=== PATIENT | female | born 1945 | race Caucasian/White ===

== ENCOUNTER 2019-08-13 11:09 | Outpatient (CLI) | payer MEDICARE, SELFPAY ==
--- NOTE | ~2019-08-13 | XR_ITS ---
EXAMINATION: XR chest 2V DATE: 08/13/2019 11:35 INDICATION: Cough and wheezing. TECHNIQUE: Frontal and lateral views of the chest were obtained. COMPARISON: None. FINDINGS: The chest demonstrates clear lungs without pneumonia, pleural effusion, or pneumothorax. Th e heart size is normal. There is a total left shoulder arthroplasty. There are surgical clips in the abdomen. IMPRESSION: 1. No acute cardiopulmonary disease. Reviewed, dictated and finalized at location A. 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
[2019-08-13 11:49] LABS: Influenza Control Valid (Valid)
== END 2019-08-13 11:10 | disposition home or self-care (01) ==
PROVIDERS: PCP Internal Medicine; Visit Provider Internal Medicine
DX: R05 Cough (principal); R06.2 Wheezing
CPT/HCPCS: 71046; 87804

== ENCOUNTER 2019-12-01 11:10 | Outpatient (CLI) | payer MEDICARE, SELFPAY ==
--- NOTE | ~2019-12-01 | XR_ITS ---
EXAMINATION: XR knee RT min 4V EXAM DATE: 12/01/2019 11:46 INDICATION: Initial encounter following injury, with pain of the right knee. Fell one week ago. TECHNIQUE: Right knee frontal, oblique, lateral and sunrise projections. There is no prior study fo r comparison. FINDINGS: There is severe right knee medial tibiofemoral compartment, moderate patellofemoral compart ment primary osteoarthritis. Extensive subchondral cyst formation at the medial tibiofemoral compart ment. No joint effusion. There are no acute fractures or dislocations identified. There is no subcut aneous gas. The soft tissue is unremarkable. There are no radiopaque foreign bodies. IMPRESSION: 1. Right knee exam without acute osseous findings. 2. Severe medial tibiofemoral, moderate patellofemoral compartment osteoarthritis. Reviewed, dictated and finalized at location A. IMPRESSION: 1. Right knee exam without acute osseous findings. 2. Severe medial tibiofemoral, moderate patellofemoral compartment osteoarthri tis.
--- NOTE | ~2019-12-01 | XR_ITS ---
EXAMINATION: XR knee LT min 4V EXAM DATE: 12/01/2019 11:46 INDICATION: Initial encounter following injury, with pain of the knees bilaterally. Injury one week ago. TECHNIQUE: Left knee lateral, frontal, oblique, sunrise projections. There is no prior study for com parison. FINDINGS: No evidence osteochondral defect or joint body in the left knee joint. There is moderate patellofemoral and medial tibiofemoral compartment primary osteoarthritis. There are no acute fractu res or dislocations identified. There is no subcutaneous gas. The soft tissue is unremarkable. Th ere are no radiopaque foreign bodies. No joint effusion. IMPRESSION: 1. Left knee exam without acute osseous findings. 2. Moderate osteoarthritis. Reviewed, dictated and finalized at location A.
== END 2019-12-01 11:11 | disposition home or self-care (01) ==
PROVIDERS: PCP Internal Medicine; Visit Provider Internal Medicine
DX: M25.562 Pain in left knee (principal); M25.561 Pain in right knee
CPT/HCPCS: 73564

== ENCOUNTER 2020-05-16 09:15 | Outpatient (CLI) | payer MEDICARE, SELFPAY ==
--- NOTE | ~2020-05-16 | XR_ITS ---
XR foot RT min 3V DATE: 05/16/2020 09:38 INDICATION: Fall one week ago. Right foot pain, especially third digit. TECHNIQUE: 3 views COMPARISON: None FINDINGS: Diffuse osteopenia. There is osteoarthritic change at the first metatarsophalangeal joint. There is plantar calcaneal enthesopathy without evidence of erosive change or periostitis. No fracture, dislocation, periosteal reaction or bone destruction is evident. IMPRESSION: Plantar calcaneal enthesopathy Osteoarthritis at first metatarsophalangeal joint Reviewed, dictated and finalized at location A. 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
== END 2020-05-16 09:16 | disposition home or self-care (01) ==
LOC: CHSIMG 09:17
PROVIDERS: PCP Internal Medicine; Visit Provider Podiatrist
DX: M79.671 Pain in right foot (principal); L97.511 Non-pressure chronic ulcer of other part of right foot limited to breakdown of skin
CPT/HCPCS: 73630

== ENCOUNTER 2020-05-30 10:56 | Outpatient (CLI) | payer MEDICARE, SELFPAY ==
[2020-05-30 12:04] LABS: SARS-CoV-2 Ag Negative (Negative)
== END 2020-05-30 10:57 | disposition home or self-care (01) ==
LOC: CHSLAB 10:58
PROVIDERS: PCP Internal Medicine; Visit Provider Internal Medicine
DX: Z20.828 Contact with and (suspected) exposure to other viral communicable diseases (principal)
CPT/HCPCS: 87426

== ENCOUNTER 2020-06-21 11:40 | Outpatient (CLI) | payer MEDICARE, SELFPAY ==
--- NOTE | ~2020-06-21 | US_ITS ---
EXAMINATION: US venous doppler LE RT EXAM DATE: 06/21/2020 13:07 INDICATION: Right calf swelling. Chiang's cyst. TECHNIQUE: Multiple grayscale, color flow and Doppler images of the right lower extremity deep venous system were obtained and reviewed. There is no prior study for comparison. FINDINGS: The right common femoral, femoral and profunda veins demonstrate normal color flow, respira tory variation, augmentation and compressibility. Compressibility, color flow confirmed within the r ight popliteal, posterior tibial, peroneal, and greater saphenous veins. There is a small Chiang's cy st measuring 1.7 x 1.0 x 2.4 cm. IMPRESSION: 1. No right lower extremity deep venous thrombosis. 2. Small Chiang's cyst. Reviewed, dictated and finalized at location B. 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
== END 2020-06-21 11:41 | disposition home or self-care (01) ==
LOC: CHSIMG 11:41
PROVIDERS: PCP Internal Medicine; Visit Provider Internal Medicine
DX: M79.89 Other specified soft tissue disorders (principal)
CPT/HCPCS: 93971

== ENCOUNTER 2020-11-20 10:18 | Outpatient (RCR) | payer MEDICARE, SELFPAY ==
--- NOTE | 2020-11-20 12:38 | PTOPEVAL ---
Thank you for referring John Kwon to [facility].? The patient is scheduled to be seen for therapy? ____x/week for ___ weeks. Please review, sign, date and return this plan of care BRIGITTE. I agree with and certify that the following plan of care is medically necessary. Referring Physician Date Admitting Provider: Attending Provider: Tianna Peres MD Referring Provider: *PT Outpatient Evaluation Start: 11/20/20 10:19 Freq: Status: Active Protocol: Document 11/20/20 10:19 ACR (Rec: 11/20/20 12:37 ACR [id number]) Therapy Assessment Status Assessment Status Assessment Status Evaluation Evaluation Information Problem Diagnosis B knee pain Onset 11/15/20 Subjective Information Patient states that her R knee Query Text:As Reported By Patient/ is worse than the L. The Family patient states that she went and had a surgical consult and stated she is approved, but she has other concerns that she is does not want to get surgery. She states that she cannot bend her knee much. Patient states that she has difficulty getting in and out of the car, walking, standing, stairs. Patient states that her goal for therapy is to gain strength and put off surgery. Prior Level of Function Activity Level (Last 3 Months) Occupation retired Hand Dominance Right Activity of Daily Living Ability Independent Indoor/Home Mobility Independent Community Mobility Independent Stairs Ability Independent Functional Cognition (Planning, Shopping Independent , Taking Medications) Cooking Yes Cleaning Yes Laundry Yes Shopping Yes Driving Yes Pain Assessment Timing of Pain Assessment Timing of Pain Assessment Assessment Pain Scale Pain Scale Used Numeric (1 - 10) Self Report Pain Assessment Left Knee(s) Reported Pain Level 0 Greatest Pain Intensity 3 Right Knee(s) Reported Pain Level 2 Greatest Pain Intensity 6 Pain Score Pain Score 2,0: Self Report Interventions Used Interventions Used By Clinicians Activity or ADL's,Exercise Lower Extremity Range of Motion Knee Range of Motion Right Knee Flexion Range of Motion - Active 55
--- NOTE | 2021-04-11 07:24 | PCPTNOTE ---
04/11/21 - patient has not been back to therapy in several months. she is working on getting setup for a R knee replacement. patient chart is DC'd. all progress towards goals will be taken from her most recent evaluation/note. MONICA
== END 2020-12-21 23:59 | disposition home or self-care (01) ==
LOC: CHSPT 10:18
PROVIDERS: PCP Internal Medicine; Visit Provider Internal Medicine
DX: M25.562 Pain in left knee (principal); M25.561 Pain in right knee
CPT/HCPCS: 97110; 97161; 97530

== ENCOUNTER 2020-11-28 11:12 | Outpatient (CLI) | payer MEDICARE, SELFPAY ==
--- NOTE | ~2020-11-28 | XR_ITS ---
EXAMINATION: XR foot LT min 3V DATE: 11/28/2020 11:51 INDICATION: Left foot diabetic ulcer. TECHNIQUE: 3 views of left foot were obtained. COMPARISON: None. FINDINGS: Bone alignment is normal. No fracture. There is an erosion of tuft of third distal phalanx. There is mild osteoarthritis of some of the interphalangeal joints and midfoot joints. There are ent hesophytes at the posterior and plantar aspect of calcaneal tuberosities. There is lateral foot soft tissue swelling. IMPRESSION: 1. Erosion of tuft of third distal phalanx, consistent with osteomyelitis. 2. Mild polyarticular osteoarthritis. Reviewed, dictated and finalized at location A.
== END 2020-11-28 11:13 | disposition home or self-care (01) ==
LOC: CHSIMG 11:14
PROVIDERS: PCP Internal Medicine; Visit Provider Podiatrist
DX: E11.621 Type 2 diabetes mellitus with foot ulcer (principal)
CPT/HCPCS: 73630

== ENCOUNTER 2020-12-22 16:51 | Outpatient (CLI) | payer MEDICARE, SELFPAY ==
[2020-12-22 17:25] LABS: Anion Gap 13 mmol/L (8-16); Blood Urea Nitrogen 31 mg/dL (7-18); Carbon Dioxide 25 mmol/L (21-32); Chloride 108 mmol/L (98-108); Estimated Glomerular Filt Rate 48; Glucose 87 mg/dL (70-99); Osmolality Calculated 307 mOsm/kg (285-295); Potassium 5.1 mmol/L (3.5-5.1); Sodium 146 mmol/L (136-145)
== END 2020-12-22 16:52 | disposition home or self-care (01) ==
LOC: CHSLAB 16:53
PROVIDERS: PCP Internal Medicine; Visit Provider Anesthesiology
DX: E11.9 Type 2 diabetes mellitus without complications (principal)
CPT/HCPCS: 36415; 80048

== ENCOUNTER 2020-12-26 01:30 | Day surgery (SDC) | payer MEDICARE, SELFPAY ==
[2020-12-22 08:52] VITALS: BMI 33.3
[2020-12-26 08:03] VITALS: BP 173/75; PULSE 66; RESP 20; TEMP 36.3; O2SAT 99
[2020-12-26] MEDS: LACTATED RINGERS 1,000 ML 30 ML IV CONT (08:40)
[2020-12-26 08:44] LABS: Glucose Point of Care 94 mg/dl (65-105)
--- NOTE | 2020-12-26 09:29 | WPDHPUPDATE1 ---
History and Physical Update Update Date/Time: 12/26/20 09:29 History and Physical has been reviewed, including an updated exam of the patient. There are NO changes in the patient's condition. Risks, benefits, and alternatives have been discussed and questions answered. Patient agrees to proceed with procedure.
--- NOTE | 2020-12-26 09:37 | WPDANESEPPF ---
Anes - Initial Pre Proc Eval Procedure: Operation Date: 12/26/20 10:00 Proposed Procedures p Partial Amputation Third Digit Left Foot - Manuel Corona DPM Date/Time: 12/26/20 09:37 Surgeon: Manuel Corona DPM Pre Op Diagnosis: Osteomyelitis third digit left foot Patient Data Age: 75 Gender: F Height: 1.68 m Weight: 96.6 kg Last Vital Signs Temp 36.3 C L 12/26/20 08:03 Pulse 66 12/26/20 08:03 Resp 20 12/26/20 08:03 BP 173/75 H 12/26/20 08:03 Pulse Ox 99 12/26/20 08:03 Allergies Allergy/AdvReac Type Severity Reaction Status Date / Time Sulfa (Sulfonamide AdvReac Rash Verified 12/26/20 08:21 Antibiotics) Tetracyclines AdvReac Hives Verified 12/26/20 08:21 Home Medications Medication Instructions Recorded Confirmed Type Lacto.acidophilus-Bif.animalis 1 cap PO DAILY 12/22/20 12/26/20 History [Probiotic] acetaminophen [Tylenol] 650 mg PO Q6H PRN 12/22/20 12/26/20 History allopurinol 100 mg PO BID 12/22/20 12/26/20 History aspirin [Aspir-81] 81 mg PO DAILY 12/22/20 12/26/20 History cetirizine [Zyrtec] 5 mg PO BID 12/22/20 12/26/20 History cholecalciferol (vitamin D3) 50 mcg PO QAM 12/22/20 12/26/20 History [Vitamin D3] colchicine 0.6 mg BID 12/22/20 12/26/20 History epinephrine 0.3 mg PRN PRN 12/22/20 12/26/20 History hydroxychloroquine 200 mg BID 12/22/20 12/26/20 History levothyroxine 50 mcg QAM 12/22/20 12/26/20 History metformin 500 mg QAM 12/22/20 12/26/20 History multivitamin [Multi-Vitamin] 1 tablet PO DAILY 12/22/20 12/26/20 History nebivolol [Bystolic] 20 mg QAM 12/22/20 12/26/20 History olmesartan 40 mg QAM 12/22/20 12/26/20 History pravastatin 10 mg EVERY OTHER DAY 12/22/20 12/26/20 History tramadol 25 mg Q6H PRN 12/22/20 12/26/20 History venlafaxine 75 mg PO HS 12/22/20 12/26/20 History Laboratory Tests 12/26/20 08:39 POC Capillary Glucose 94 mg/dl mg/dl (65-105) Patient hx anesthesia problems: none Family hx anesthesia problems: none PMFSH Past Medical History Medical History (Updated 12/26/20 @ 09:38 by Ky Mejia DO) Bronchitis frequent Diabetes type 2, controlled GERD (gastroesophageal reflux disease) History of subdural hematoma Angelito hole in , no residual Hyperlipidemia Hypertension Hypothyroidism BRIJESH (obstructive sleep apnea) CPAP Surgical History Surgical History (Updated 12/26/20 @ 09:38 by Ky Mejia DO) History of appendectomy History of cholecystectomy Social History Social History (System 12/20/20 @ 13:20 by Alea Jones) Smoking status: Former smoker Second hand tobacco smoke exposure: No Additional smoking assessment comments: STATES SMOKED SOCIALLY IN COLLEGE <1Y Alcohol intake: current Alcohol use details: STATES MAYBE 3-4 DRINKS A YEAR Substance use: never Substance use type: does not use Living arrangements: with family Spiritual care concerns: No Anes - Eval Final PreProcedure Day of Procedure 12/26/20 09:37 Patient weight: obese Heart: regular rate and rhythm Lungs: clear to auscultation and normal air movement Airway: Mallampati scale class II Neurological: alert and oriented Last oral intake: >/= 8 hours ASA classification: III Emergent: no Anesthetic plan: proceed Anesthesia type and monitoring: general GIVS and standard monitoring Informed Consent: The patient's anesthetic plan and its attendant risks and benefits were discussed with the patient/family/POA. Questions were solicited and answers provided to the satisfaction of the patient/family/POA.
[2020-12-26] MEDS: ceFAZolin 2 GM/D5W 50 ML 2 GM/50 ML BAG IVPB (09:55)
[2020-12-26] MEDS: VANCOMYCIN HCL 1,000 MG VIAL 1000 MG TOPICAL (10:29)
[2020-12-26 10:40] VITALS: BP 102/44; PULSE 67; RESP 15; O2SAT 100
--- NOTE | 2020-12-26 10:40 | W.PM.PROC2 ---
Procedure Note - Detailed Date of Procedure 12/26/20 Pre-op Diagnosis Osteomyelitis third digit left foot Post-op Diagnosis same Procedure Performed Pre-op Diagnosis: Osteomyelitis third digit, left foot Post-op Diagnosis: same Procedure: Partial amputation third digit, left foot Anesthesia: MAC with local Hemostasis: Ankle TQ 250mmhg EBL: 2cc Materials: 4-0 prolene Injectables: 10cc of 1:1 mixture of 1% lidocaine plain and 0.5% marcaine plain Specimen: Bone cultures distal phalanx third digit, left foot. Pathology distal phalanx third digit, left foot. Procedure in detail: Under mild sedation the patient was brought in the operating room placed on the operating table in a supine position. a well-padded pneumatic ankle tourniquet was then placed on patient's left ankle. local anesthesia was injected about the patient's 3rd digit, a total of 10 cc of a 1:1 mixture of 1% lidocaine plain and 0.5% Marcaine plain were then injected injected about the operative site. foot was then scrubbed prepped and draped in the usual aseptic manner. and Esmarch bandage was utilized to exsanguinate patient's left foot and the pneumatic ankle tourniquet was inflated to 250 mmHg. attention was directed to the distal aspect of the patient's 3rd digit where an open wound was noted to the plantar aspect of the distal tuft. utilizing a sharp sterile 15 blade an incision was made down to bone and Compazine the middle phalanx and distal phalanx of the 3rd digit. the soft tissue was then carefully disarticulated from the bony attachments. please note that the wound to the plantar tuft of the 3rd digit was also encompassed within this incision. the dorsal skin and the distal aspect of the digit including the distal phalanx was carefully disarticulated at the DIPJ and passed from the field. specimens were then taken from the distal phalanx, a portion was sent for bone cultures for aerobic and anaerobic cultures and the remaining portion of the distal phalanx was then sent as a specimen for pathology. the middle phalanx was then carefully inspected about the operative site and the distal portion of the middle phalanx was then resected with bone-cutting forceps and noted to be hard and viable. all nonviable soft tissue to the soft tissue flap was then carefully removed and passed from field. the remaining soft tissue and bone were all noted to be viable. the resected portion of the middle phalanx was then carefully burred down with a bone rasp and noted to be free of any sharp cortical edges. the wound was carefully irrigated with 200 cc of normal sterile saline mixed with 1 g of vancomycin powder. the surgical site was then carefully inspected 1 last time and noted to be free of all nonviable bone and soft tissue. a good viable skin flap was noted and the wound was closed with 4 0 Prolene. the incision was then dressed with Xeroform 4x4s Kerlix and Coban. the pneumatic ankle tourniquet was deflated and a prompt hyperemic response noted to all toes of the left foot. the patient tolerated the procedure and anesthesia well was transferred to the recovery room with vital signs stable and vascular status intact to the toes of the left foot. following a period of postoperative monitoring the patient will be discharged home. Surgeon Surgeon: Manuel Corona DPM Pre-op Diagnosis: Osteomyelitis third digit, left foot Post-op Diagnosis: same Procedure: Partial amputation third digit, left foot Anesthesia: MAC with local Hemostasis: Ankle TQ 250mmhg EBL: 2cc Materials: 4-0 prolene Injectables: 10cc of 1:1 mixture of 1% lidocaine plain and 0.5% marcaine plain Specimen: Bone cultures distal phalanx third digit, left foot. Pathology distal phalanx third digit, left foot. Procedure in detail: Under mild sedation the patient was brought in the operating room placed on the operating table in a supine position. a well-padded pneumatic ankle tourniquet was then placed on pat
[2020-12-26 10:47] LABS: Glucose Point of Care 110 mg/dl (65-105)
[2020-12-26 11:10] VITALS: BP 136/53; PULSE 58; RESP 16
[2020-12-26 11:38] VITALS: BP 142/69; PULSE 59; RESP 16
== END 2020-12-26 11:50 | disposition home or self-care (01) ==
PROVIDERS: PCP Internal Medicine; Visit Provider Podiatrist
PROC: (CPT 28825; principal; 2020-12-26 10:00)
DX: E11.69 Type 2 diabetes mellitus with other specified complication (principal); M86.672 Other chronic osteomyelitis, left ankle and foot; I10 Essential (primary) hypertension; E78.5 Hyperlipidemia, unspecified; E03.9 Hypothyroidism, unspecified; G47.33 Obstructive sleep apnea (adult) (pediatric); K21.9 Gastro-esophageal reflux disease without esophagitis; Z79.84 Long term (current) use of oral hypoglycemic drugs; Z79.82 Long term (current) use of aspirin; Z87.891 Personal history of nicotine dependence; E66.9 Obesity, unspecified; Z68.34 Body mass index [BMI] 34.0-34.9, adult
CPT/HCPCS: 28825; 82948; 87070; 87075; 87077; 87186; 87205; 88307; 88311; A9270; J0690; J2704; J3010; J3370; J7120

== ENCOUNTER 2021-01-03 10:26 | Outpatient (CLI) | payer MEDICARE, SELFPAY ==
--- NOTE | ~2021-01-03 | XR_ITS ---
XR foot LT min 3V 01/03/2021 10:54 Indication: Osteomyelitis of the left third toe. Post amputation. Procedure: 3 views left foot Comparison: 11/28/2020 Findings: Status post amputation of the third toe at the middle phalanx. Mild soft tissue swelling. N o fracture or traumatic malalignment. Osteopenia. Lisfranc joint intact. There are degenerative calca ricarda spurs. No foreign bodies. Impression: 1: Status post amputation of the left third toe at the middle phalanx. Reviewed, dictated and finalized at location A. Impression: 1: Status post amputation of the left third toe at the middle phalanx.
== END 2021-01-03 10:27 | disposition home or self-care (01) ==
LOC: CHSIMG 10:28
PROVIDERS: PCP Internal Medicine; Visit Provider Podiatrist
DX: Z98.890 Other specified postprocedural states (principal); M86.9 Osteomyelitis, unspecified
CPT/HCPCS: 73630

== ENCOUNTER 2021-01-31 11:33 | Outpatient (CLI) | payer MEDICARE, SELFPAY ==
--- NOTE | ~2021-01-31 | XR_ITS ---
EXAMINATION: XR foot LT min 3V DATE: 01/31/2021 11:55 INDICATION: Follow-up osteomyelitis of the left third toe TECHNIQUE: Dorsoplantar, oblique and lateral views of the left foot were obtained. COMPARISON: None. FINDINGS: Again seen a left third toe amputation across the proximal metaphyseal region of the middle phalanx. Unchanged smooth osteotomy margin with no evident osteolysis to suggest residual/recurrent osteomyeli tis. No fracture. Mild osteoarthritis at the first metatarsophalangeal and several tarsal metatarsal and interphalangeal joints. Achilles and plantar calcaneal spurs, moderate and small sized respective ly. IMPRESSION: 1. Status post partial left third toe amputation with no evident residual/recurrent osteomyelitis. Reviewed, dictated and finalized at location B. IMPRESSION: 1. Status post partial left third toe amputation with no evident residual/recur rent osteomyelitis.
== END 2021-01-31 11:34 | disposition home or self-care (01) ==
LOC: CHSLAB 11:35
PROVIDERS: PCP Internal Medicine; Visit Provider Podiatrist
DX: M86.9 Osteomyelitis, unspecified (principal)
CPT/HCPCS: 73630

== ENCOUNTER 2021-05-10 09:57 | Outpatient (CLI) | payer MEDICARE, SELFPAY ==
[2021-05-10 11:54] LABS: Basophils Percent Auto 0.4 % (0.2-1.2); Eosinophils Absolute Auto 0.4 K/mm3 (0-0.3); Eosinophils Percent Auto 5.1 % (0-4.4); Hematocrit 35.9 % (37.0-47.0); Hemoglobin 11.6 g/dL (12.0-15.0); Immature Granulocyte Absolute 0.03 K/mm3 (0.00-0.031); Immature Granulocyte Percent A 0.4 % (0-0.5); Lymphocytes Absolute Auto 2.06 K/mm3 (0.9-3.2); Lymphocytes Percent Auto 29.9 % (18.3-44.2); Mean Corpuscular HGB Conc 32.3 g/dl (32-36); Mean Corpuscular Hemoglobin 30.9 pg (26-34); Mean Corpuscular Volume 95.5 fl (80-100); Mean Platelet Volume 10.6 fl (7.4-10.4); Monocytes Absolute Auto 0.5 K/mm3 (0.1-0.6); Monocytes Percent Auto 7.7 % (2.6-8.5); Neutrophils Absolute Auto 3.9 K/mm3 (1.3-6.7); Neutrophils Percent Auto 56.5 % (45.5-73.1); Platelet Count Result 210 k/mm3 (150-375); Red Blood Count 3.76 M/mm3 (4.2-5.4); Red Cell Distribution Width 15.2 % (11.5-14.5); White Blood Count 6.9 K/mm3 (4.5-10.0)
[2021-05-10 12:04] LABS: Albumin Level 4.2 g/dL (3.5-5.1); Anion Gap 9 mmol/L (8-16); Blood Urea Nitrogen 28 mg/dL (7-17); Calcium 9.5 mg/dL (8.4-10.2); Carbon Dioxide 25 mmol/L (22-30); Chloride 106 mmol/L (98-107); Estimated Glomerular Filt Rate 54; Glucose 92 mg/dL (65-110); Potassium 4.7 mmol/L (3.4-5.0); Sodium 140 mmol/L (137-145); Urine Cotinine NEGATIVE
[2021-05-10 12:38] LABS: Hemoglobin A1C 5.6 % (<5.7)
== END 2021-05-10 09:58 | disposition home or self-care (01) ==
LOC: ANHSURGERY 10:01
PROVIDERS: PCP Internal Medicine; Visit Provider Orthopaedic Surgery
DX: M17.11 Unilateral primary osteoarthritis, right knee (principal); Z01.818 Encounter for other preprocedural examination
CPT/HCPCS: 80048; 80307; 82040; 83036; 85025; 87070

== ENCOUNTER 2021-08-09 13:52 | Outpatient (CLI) | payer MEDICARE, SELFPAY ==
[2021-08-09 14:43] LABS: Basophils Percent Auto 0.4 % (0.2-1.2); Eosinophils Absolute Auto 0.4 K/mm3 (0-0.3); Eosinophils Percent Auto 5.6 % (0-4.4); Hematocrit 37.3 % (37.0-47.0); Hemoglobin 11.9 g/dL (12.0-15.0); Immature Granulocyte Absolute 0.03 K/mm3 (0.00-0.031); Immature Granulocyte Percent A 0.4 % (0-0.5); Lymphocytes Absolute Auto 2.55 K/mm3 (0.9-3.2); Lymphocytes Percent Auto 36.3 % (18.3-44.2); Mean Corpuscular HGB Conc 31.9 g/dl (32-36); Mean Corpuscular Hemoglobin 31.2 pg (26-34); Mean Corpuscular Volume 97.9 fl (80-100); Mean Platelet Volume 10.7 fl (7.4-10.4); Monocytes Absolute Auto 0.6 K/mm3 (0.1-0.6); Monocytes Percent Auto 8.5 % (2.6-8.5); Neutrophils Absolute Auto 3.4 K/mm3 (1.3-6.7); Neutrophils Percent Auto 48.8 % (45.5-73.1); Platelet Count Result 209 k/mm3 (150-375); Red Blood Count 3.81 M/mm3 (4.2-5.4); Red Cell Distribution Width 14.6 % (11.5-14.5)
[2021-08-09 14:59] LABS: Albumin Level 4.5 g/dL (3.5-5.1); Anion Gap 6 mmol/L (8-16); Blood Urea Nitrogen 25 mg/dL (7-17); Calcium 8.9 mg/dL (8.4-10.2); Carbon Dioxide 26 mmol/L (22-30); Chloride 106 mmol/L (98-107); Estimated Glomerular Filt Rate > 60; Glucose 97 mg/dL (65-110); Potassium 4.6 mmol/L (3.4-5.0); Sodium 138 mmol/L (137-145)
[2021-08-09 15:24] LABS: Urine Cotinine NEGATIVE
[2021-08-09 15:59] LABS: Hemoglobin A1C 5.3 % (<5.7)
== END 2021-08-09 13:53 | disposition home or self-care (01) ==
PROVIDERS: PCP Internal Medicine; Visit Provider Orthopaedic Surgery
DX: Z01.818 Encounter for other preprocedural examination (principal); M17.11 Unilateral primary osteoarthritis, right knee
CPT/HCPCS: 80048; 80307; 82040; 83036; 85025; 86850; 86900; 86901; 87070

== ENCOUNTER 2021-08-15 | Day surgery (SDC) | payer MEDICARE, SELFPAY ==
[2021-05-10 10:33] VITALS: BP 143/65; PULSE 61; RESP 18; TEMP 37.3; O2SAT 99; BMI 37.3
--- NOTE | 2021-05-10 10:59 | PC.NURSE ---
Addendum entered by Olga Hinojosa RN 05/10/21 11:24: CLARIFICATION-HOLD ASPIRIN 7 DAYS PRE-OP, LD 05/21/21. VIT/SUPPLEMENTS -LD 05/24/21. Original Note: Report to the Outpatient Waiting Room, entrance under the green pavilion located off [facility], at time __6:00AM on date __05/28/21 . OR Time: ___7:30AM . - You and your visitor will be asked a series of questions to screen for COVID 19 for your protection. - A mask is required within the hospital. - Only one visitor is allowed at this time. Patient visitors will be guided where to wait when not with patient. Preoperative COVID Testing Requirements: No COVID Test needed if: (proof is required; if not received patient will have Rapid Test prior to entry) - Patient has received COVID Vaccine at least 14 days prior to procedure date or - Patient has positive COVID test result within last 90 days of surgery date. COVID Test needed if above criteria is not met If not COVID vaccinated a COVID test must be conducted within 72 hours of surgery and patient is asked to isolate self from time of testing until procedure. You will go to the [facility] for your COVID testing. The [facility] Testing site is located at the corner of [address] [facility]. You will only be called if COVID results are positive and your surgeon may reschedule your elective surgery date. Patients may have clear liquids (water, carbonated beverages, clear teas, apple juice) until 3 hours prior to surgery with a maximum of 20 ounces. - No food from midnight until time of surgery - Infants may have breast milk until 4 hours before surgery, infant formula 6 hours prior to surgery. - Children will be allowed to drink immediately following surgery. If applicable, please bring a bottle or sippy cup to assist with drinking. Juice, water, soda, and popsicles are readily available. For infants on formula, please bring formula the day of surgery. Pacifiers are allowed. Take the following medications with a SIP of water the morning of surgery: LEVOTHYROXINE, NEBIVOLOL, TRAMADOL NEEDED Medications to discontinue per physician VITAMINS/SUPPLEMENTS 3 DAYS PRE-OP Date to take last dose 05/21/21 Please no make-up, nail lao, hairspray, perfume, deodorant, or body powder the day of surgery. No jewelry (including any body piercings) or valuables the day of surgery, leave them at home. Please take a shower or bath the night before, or the morning of, surgery with an antibacterial soap. Wear comfortable, loose fitting clothing. Children are encouraged to wear pajamas. - Jewelry must be removed prior to entering the operating room. Rings and piercings that are not removed may be cut off. - The hospital will not accept responsibility for valuables. - Please leave all valuables, including medications, at home the day of surgery. If you are going home after surgery, a licensed tow motor driver must drive you home. - NO public transportation without another adult. - We recommend that an adult stay with you for 24 hours following discharge. - We also recommend that you do not drive, make important decision, drink alcoholic beverages, or take any drugs that were not prescribed by your health care provider for at least 24 hours after your discharge time. For Pediatric surgeries, we recommend two adults accompany the child home (only one inside the building at this time). Follow any additional instructions given to you from your surgeon. Telephone instructions given to ___PATIENT and asked if any additional questions and then verbalized understanding. Patient advised to call surgeon office or pre surgery nurse liaison [phone] if any additional questions.
[2021-08-08 10:02] VITALS: BMI 39.1
--- NOTE | 2021-08-08 10:30 | PC.NURSE ---
Report to the Outpatient Waiting Room, entrance under the green pavilion located off [facility], at time __10:00AM on date _08/15/21__. OR Time: __12:00PM . - You and your visitor will be asked a series of questions to screen for COVID 19 for your protection. - A mask is required within the hospital. Preoperative COVID Testing Requirements: No COVID Test needed if: (proof is required; if not received patient will have Rapid Test prior to entry) - Patient has received COVID Vaccine at least 14 days prior to procedure date or - Patient has positive COVID test result within last 90 days of surgery date. COVID Test needed if above criteria is not met If not COVID vaccinated a COVID test must be conducted within 72 hours of surgery and patient is asked to isolate self from time of testing until procedure. You will go to the [facility] for your COVID testing. The [facility] is located at the corner of [address] [facility]. You will only be called if COVID results are positive and your surgeon may reschedule your elective surgery date. Patients may have clear liquids (water, carbonated beverages, clear teas, apple juice) until 3 hours prior to surgery with a maximum of 20 ounces. - No food from midnight until time of surgery - Infants may have breast milk until 4 hours before surgery, formula 6 hours prior to surgery. - Children will be allowed to drink immediately following surgery. If applicable, please bring a bottle or sippy cup to assist with drinking. Juice, water, soda, and popsicles are readily available. For infants on formula, please bring formula the day of surgery. Pacifiers are allowed. Take the following medications with a SIP of water the morning of surgery: __LEVOTHYROXINE, NEBIVOLOL, TRAMADOL NEEDED Medications to discontinue per physician ALL VITAMINS/SUPPLEMENTS 3 DAYS PRE-OP, ASPIRIN & DICLOFENAC 7 DAYS PRE-OP PER DR LEAL Date to take last dose___08/08/21 Please no make-up, nail armenian, hairspray, perfume, deodorant, or body powder the day of surgery. No jewelry (including any body piercings) or valuables the day of surgery, leave them at home. Please take a shower or bath the night before, or the morning of, surgery with an antibacterial soap. Wear comfortable, loose fitting clothing. Children are encouraged to wear pajamas. - Jewelry must be removed prior to entering the operating room. Rings and piercings that are not removed may be cut off. - The hospital will not accept responsibility for valuables. - Please leave all valuables, including medications, at home the day of surgery. If you are going home after surgery, a licensed local company refrigerated truck driver must drive you home. - NO public transportation without another adult. - We recommend that an adult stay with you for 24 hours following discharge. - We also recommend that you do not drive, make important decision, drink alcoholic beverages, or take any drugs that were not prescribed by your health care provider for at least 24 hours after your discharge time. For Pediatric surgeries, we recommend two adults accompany the child home (only one inside the building at this time). One visitor will be allowed to accompany the patient into the hospital. Patients visitor will be instructed to remain with patient at all times or leave the building. We will allow the visitor to come back to the postoperative area when patient is ready. Follow any additional instructions given to you from your surgeon. Telephone instructions given to ___PATIENT and asked if any additional questions and then verbalized understanding. Patient advised to call surgeon office or pre surgery nurse liaison [phone] if any additional questions.
--- NOTE | 2021-08-13 13:55 | PM.IMHP ---
H&P: HPI History of Present Illness Date/Time: 08/13/21 13:55 75-year-old female patient of Dr. Peres who presents today for right total knee arthroplasty. She has been having pain symptoms in this knee for approximately 2 years. She has advanced medial compartment arthritis in the right knee with significant bone loss in the medial tibial plateau. She also has significant loss of motion as well. She is miserable with symptoms on a daily basis. She would like to proceed with total knee arthroplasty at this point rather continue nonsurgical treatment. <SIMÓN Banda - Last Filed: 08/13/21 14:13> Chief Complaint: Right knee DJD <SIMÓN Banda - Last Filed: 08/13/21 14:13> Review of Systems Review of Systems: All systems reviewed & are unremarkable except as noted in HPI and below <SIMÓN Banda - Last Filed: 08/13/21 14:13> PMFSH Past Medical History Medical History: Medical History (Updated 08/14/21 @ 10:29 by Faustino Irizarry MD) Anxiety Arthritis Bronchitis frequent Depression Diabetes type 2, controlled GERD (gastroesophageal reflux disease) History of subdural hematoma [place] hole in , no residual Hyperlipidemia Hypertension Hypothyroidism Obesity BRIJESH (obstructive sleep apnea) CPAP <SIMÓN Banda - Last Filed: 08/13/21 14:13> Surgical History Surgical History: Surgical History History of appendectomy History of cholecystectomy <SIMÓN Banda - Last Filed: 08/13/21 14:13> Social History Social History: Social History Smoking status: Never smoker Second hand tobacco smoke exposure: No Additional smoking assessment comments: STATES SMOKED SOCIALLY IN COLLEGE <1Y Alcohol intake: current Alcohol use details: . Substance use: never Substance use type: does not use Living arrangements: with family Additional living arrangements comments: -GAUTAM Spiritual care concerns: No <SIMÓN Banda - Last Filed: 08/13/21 14:13> Meds Home Medications and Allergies Home medications: Home Medications Medication Instructions Recorded Confirmed Type Lacto.acidophilus-Bif.animalis 2 cap PO DAILY 12/22/20 08/15/21 History [Probiotic] acetaminophen [Tylenol] 650 mg PO Q6H PRN 12/22/20 08/08/21 History allopurinol 100 mg PO BID 12/22/20 08/08/21 History aspirin [Aspir-81] 81 mg PO DAILY 12/22/20 08/15/21 History cetirizine [Zyrtec] 10 mg PO BID 12/22/20 08/08/21 History cholecalciferol (vitamin D3) 50 mcg PO QAM 12/22/20 08/15/21 History [Vitamin D3] colchicine 0.6 mg PO BID 12/22/20 08/08/21 History epinephrine 0.3 mg SUBCUT PRN PRN 12/22/20 08/08/21 History hydroxychloroquine 200 mg PO BID 12/22/20 08/08/21 History levothyroxine 50 mcg PO QAM 12/22/20 08/15/21 History metformin 500 mg PO QAM 12/22/20 08/08/21 History multivitamin [Multi-Vitamin] 2 tablet PO DAILY 12/22/20 08/15/21 History nebivolol [Bystolic] 20 mg PO QAM 12/22/20 08/15/21 History olmesartan 40 mg PO QAM 12/22/20 08/08/21 History pravastatin 10 mg PO EVERY OTHER DAY 12/22/20 08/08/21 History tramadol 25 mg PO BID PRN 12/22/20 08/15/21 History venlafaxine 75 mg PO HS 12/22/20 08/08/21 History diclofenac sodium [Voltaren 2 g TOPICAL QID PRN 05/10/21 08/08/21 History Arthritis Pain] glucosamine-chondroitin [Osteo 2 tablet PO DAILY 05/10/21 08/15/21 History Bi-Flex] <SIMÓN Banda - Last Filed: 08/13/21 14:13> Allergies/Adverse reactions: Allergies Allergy/AdvReac Type Severity Reaction Status Date / Time Sulfa (Sulfonamide Allergy Rash Verified 08/15/21 10:03 Antibiotics) Tetracyclines Allergy Hives Verified 08/15/21 10:03 <SIMÓN Banda - Last Filed: 08/13/21 14:13> Exam Narrative: A 75-year-old female alert pleasant. She is 5 ft 3 and 203 lb. Her right knee range of motion is from 25-75 degr
--- NOTE | 2021-08-14 10:27 | WPDANESEPPF ---
Anes - Initial Pre Proc Eval Procedure: Operation Date: 08/15/21 12:00 Proposed Procedures p Right Total Knee Arthroplasty - Young Simmons MD Date/Time: 08/14/21 10:27 Surgeon: Young Simmons MD Pre Op Diagnosis: severe OA right knee Patient Data Age: 75 Gender: F Height: 1.55 m Weight: 94 kg Last Vital Signs Temp 37.3 C 05/10/21 10:33 Pulse 61 05/10/21 10:33 Resp 18 05/10/21 10:33 BP 143/65 H 05/10/21 10:33 Pulse Ox 99 05/10/21 10:33 Allergies Allergy/AdvReac Type Severity Reaction Status Date / Time Sulfa (Sulfonamide Allergy Rash Verified 08/08/21 10:01 Antibiotics) Tetracyclines Allergy Hives Verified 08/08/21 10:01 Home Medications Medication Instructions Recorded Confirmed Type Lacto.acidophilus-Bif.animalis 2 cap PO DAILY 12/22/20 08/08/21 History [Probiotic] acetaminophen [Tylenol] 650 mg PO Q6H PRN 12/22/20 08/08/21 History allopurinol 100 mg PO BID 12/22/20 08/08/21 History aspirin [Aspir-81] 81 mg PO DAILY 12/22/20 08/08/21 History cetirizine [Zyrtec] 10 mg PO BID 12/22/20 08/08/21 History cholecalciferol (vitamin D3) 50 mcg PO QAM 12/22/20 08/08/21 History [Vitamin D3] colchicine 0.6 mg PO BID 12/22/20 08/08/21 History epinephrine 0.3 mg SUBCUT PRN PRN 12/22/20 08/08/21 History hydroxychloroquine 200 mg PO BID 12/22/20 08/08/21 History levothyroxine 50 mcg PO QAM 12/22/20 08/08/21 History metformin 500 mg PO QAM 12/22/20 08/08/21 History multivitamin [Multi-Vitamin] 2 tablet PO DAILY 12/22/20 08/08/21 History nebivolol [Bystolic] 20 mg PO QAM 12/22/20 08/08/21 History olmesartan 40 mg PO QAM 07/16/21 03/02/22 History pravastatin 10 mg PO EVERY OTHER DAY 12/22/20 08/08/21 History tramadol 25 mg PO BID PRN 12/22/20 08/08/21 History venlafaxine 75 mg PO HS 12/22/20 08/08/21 History diclofenac sodium [Voltaren 2 g TOPICAL QID PRN 05/10/21 08/08/21 History Arthritis Pain] glucosamine-chondroitin [Osteo 2 tablet PO DAILY 05/10/21 08/08/21 History Bi-Flex] Results Review: All pre-operative results and documents have been reviewed as part of the pre-operative evaluation. [facility] Past Medical History Medical History (Updated 08/14/21 @ 10:29 by Faustino Irizarry MD) Anxiety Arthritis Bronchitis frequent Depression Diabetes type 2, controlled GERD (gastroesophageal reflux disease) History of subdural hematoma [place] hole in , no residual Hyperlipidemia Hypertension Hypothyroidism Obesity BRIJESH (obstructive sleep apnea) CPAP Surgical History Surgical History History of appendectomy History of cholecystectomy Social History Social History Smoking status: Never smoker Second hand tobacco smoke exposure: No Additional smoking assessment comments: STATES SMOKED SOCIALLY IN COLLEGE <1Y Alcohol intake: current Alcohol use details: . Substance use: never Substance use type: does not use Additional living arrangements comments: -GAUTAM Spiritual care concerns: No Anes - Eval Final PreProcedure Day of Procedure 08/14/21 10:27 Patient weight: obese Heart: regular rate and rhythm Lungs: clear to auscultation and normal air movement Airway: Mallampati scale class II Neurological: alert and oriented Last oral intake: >/= 8 hours ASA classification: III Emergent: no Anesthetic plan: proceed Anesthesia type and monitoring: general LMA and ETT Results Review: All pre-operative results and documents have been reviewed as part of the pre-operative evaluation. Informed Consent: The patient's anesthetic plan and its attendant risks and benefits were discussed with the patient/family/POA. Questions were solicited and answers provided to the satisfaction of the patient/family/POA.
[2021-08-15] VITALS (10 sets, daily range): BP systolic 100–151; BP diastolic 45–69; PULSE 59–69; RESP 14–20; TEMP 36.6–36.9; O2SAT 94–100; BMI 38.9
--- NOTE | ~2021-08-15 | XR_ITS ---
EXAMINATION: XR knee RT 2V DATE: 08/15/2021 19:11 INDICATION: Postoperative evaluation following right total knee arthroplasty. TECHNIQUE: Anteroposterior and lateral views of the right knee were obtained. COMPARISON: 12/01/2019 FINDINGS: Right total knee arthroplasty with patellar resurfacing and longstem femoral and tibial components ap pears well seated and in near anatomic alignment. Diffuse osteopenia. No fractures identified. Expect ed postoperative subcutaneous and intra-articular gas. IMPRESSION: 1. Right total knee arthroplasty, negative for postoperative purposes. Reviewed, dictated and finalized at location A. [employer]CH[employer]ICIAN
--- NOTE | 2021-08-15 08:33 | WPDANESEPPF ---
Anes - Initial Pre Proc Eval Procedure: Operation Date: 08/15/21 12:00 Proposed Procedures p Right Total Knee Arthroplasty - Young Simmons MD <Wojciech Albarran MD - Last Filed: 08/30/21 13:50> Date/Time: 08/15/21 08:33 <Wojciech Albarran MD - Last Filed: 08/30/21 13:50> Surgeon: Young Simmons MD <Wojciech Albarran MD - Last Filed: 08/30/21 13:50> Pre Op Diagnosis: severe OA right knee <Wojciech Albarran MD - Last Filed: 08/30/21 13:50> Patient Data Age: 75 Gender: F Height: 1.55 m Weight: 94 kg <Wojciech Albarran MD - Last Filed: 08/30/21 13:50> Last Vital Signs Temp 99.1 F 05/10/21 10:33 Pulse 61 05/10/21 10:33 Resp 18 05/10/21 10:33 BP 143/65 H 05/10/21 10:33 Pulse Ox 99 05/10/21 10:33 <Wojciech Albarran MD - Last Filed: 08/30/21 13:50> Allergies Allergy/AdvReac Type Severity Reaction Status Date / Time Sulfa (Sulfonamide Allergy Rash Verified 08/15/21 23:33 Antibiotics) Tetracyclines Allergy Hives Verified 08/15/21 23:33 <Wojciech Albarran MD - Last Filed: 08/30/21 13:50> Home Medications Medication Instructions Recorded Confirmed Type Probiotic 2 cap PO DAILY 12/22/20 08/15/21 History allopurinol 100 mg PO BID 12/22/20 08/08/21 History cetirizine [Zyrtec] 10 mg PO BID 12/22/20 08/08/21 History cholecalciferol (vitamin D3) 50 mcg PO QAM 12/22/20 08/15/21 History [Vitamin D3] colchicine 0.6 mg PO BID 12/22/20 08/08/21 History epinephrine 0.3 mg SUBCUT PRN PRN 12/22/20 08/08/21 History levothyroxine 50 mcg PO QAM 12/22/20 08/15/21 History metformin 500 mg PO QAM 12/22/20 08/08/21 History multivitamin 2 tablet PO DAILY 12/22/20 08/15/21 History nebivolol [Bystolic] 20 mg PO QAM 12/22/20 08/15/21 History olmesartan 40 mg PO QAM 12/22/20 08/08/21 History pravastatin 10 mg PO EVERY OTHER DAY 12/22/20 08/08/21 History venlafaxine 75 mg PO HS 12/22/20 08/08/21 History acetaminophen 1,000 mg PO Q6HR #90 tablet 08/16/21 Rx apixaban [Eliquis] 2.5 mg PO Q12HR #27 tablet 08/16/21 Rx cephalexin 500 mg PO Q6HR #40 cap 08/16/21 Rx oxycodone 5 mg PO Q4H #40 tablet 08/16/21 Rx polyethylene glycol 3350 [Miralax] 17 g PO QAM #30 ea 08/16/21 Rx sennosides-docusate sodium 2 tab PO Q12HR #60 tablet 08/16/21 Rx [Senokot-S] <Wojciech Albarran MD - Last Filed: 08/30/21 13:50> Patient hx anesthesia problems: none <Ky Mejia DO - Last Filed: 08/15/21 11:27> Family hx anesthesia problems: none <Ky Mejia DO - Last Filed: 08/15/21 11:27> Results Review: All pre-operative results and documents have been reviewed as part of the pre-operative evaluation. <Wojciech Albarran MD - Last Filed: 08/30/21 13:50> [facility] Past Medical History Medical History: Medical History (Updated 08/14/21 @ 10:29 by Faustino Irizarry MD) Anxiety Arthritis Bronchitis frequent Depression Diabetes type 2, controlled GERD (gastroesophageal reflux disease) History of subdural hematoma [place] hole in , no residual Hyperlipidemia Hypertension Hypothyroidism Obesity BRIJESH (obstructive sleep apnea) CPAP <Wojciech Albarran MD - Last Filed: 08/30/21 13:50> Surgical History Surgical History: Surgical History (Updated 08/16/21 @ 07:19 by SIMÓN Banda) History of appendectomy History of cholecystectomy <Wojciech Albarran MD - Last Filed: 08/30/21 13:50> Social History Social History: Social History Smoking status: Never smoker Second hand tobacco smoke exposure: No Additional smoking assessment comments: STATES SMOKED SOCIALLY IN COLLEGE <1Y Alcohol intake: current Drinks per week: 2 Alcohol use details: . Substance use: never Substance use type: does not use Additional living arrangements comments: Spiritual care concerns: No <Wojciech Albarran MD - Last Filed: 08/30/21 13:50> Beka - Jamie Final Pre
[2021-08-15] MEDS: LACTATED RINGERS 1,000 ML 30 ML IV CONT ×2 (10:43→18:53)
[2021-08-15] MEDS: ACETAMINOPHEN 500 MG TABLET 1000 MG PO (10:43)
[2021-08-15] MEDS: TRANEXAMIC ACID 1,000MG/ISO100 1,000 MG/100 ML BAG 200 MG IVPB (10:44)
[2021-08-15 10:53] LABS: Glucose Point of Care 108 mg/dl (65-105)
--- NOTE | 2021-08-15 11:53 | WPDHPUPDATE1 ---
History and Physical Update Update Date/Time: 08/15/21 11:53 History and Physical has been reviewed, including an updated exam of the patient. There are NO changes in the patient's condition. Risks, benefits, and alternatives have been discussed and questions answered. Patient agrees to proceed with procedure.
[2021-08-15] MEDS: ceFAZolin 2 GM/D5W 50 ML 2 GM/50 ML BAG IVPB (12:23)
[2021-08-15] MEDS: ceFAZolin SODIUM 1 GM VIAL 3 GM IRRIGATION (13:28)
[2021-08-15] MEDS: GENTAMICIN BONE CEMENT REFOBACIN 3 EACH TOPICAL (16:15)
[2021-08-15] MEDS: ceFAZolin SODIUM 1 GM VIAL 2 GM IV PUSH (16:34)
--- NOTE | 2021-08-15 18:49 | W.PM.PROC2 ---
Procedure Note - Detailed Date of Procedure 08/15/21 Pre-op Diagnosis severe OA right knee Post-op Diagnosis Same Procedure Performed Right total knee arthroplasty with semi constrained implants Surgeon Young Simmons MD Inspector [employer] Jennifer Anesthesia General Description of Procedure There is extra difficulty with the procedure due to obesity with BMI of 38.9 and severe contracture and deformity and medial tibial bone loss with fragmentation. This added at least 2-1/2 hours to the procedure. Patient was brought to the operating room and general anesthesia was administered. She received 2 g of Ancef weight based vancomycin 1 g of tranexamic acid preoperatively. The right knee was prepped draped usual fashion. Under anesthesia she continued to exhibit a 25 degree fixed flexion contracture with varus deformity. Limb was exsanguinated tourniquet elevated to 265 mmHg. A 7 in longitudinal incision was made in the standard parapatellar arthrotomy was utilized. The knee was extremely stiff. She only had about 80? of flexion under anesthesia. 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 The patella was very difficult to gypsy and we 1 able to do so initially. A synovectomy was performed. A guide gissel was inserted down the femoral canal after aspiration of BM contents using the 5 degree valgus cutting bushing 9 mm of bone removed the distal femur. This removed about 7 mm laterally. Exposing the tibia medially was very difficult because of the severe fragmentation and scarring. The superficial medial collateral ligament was carefully elevated off the medial tibial metaphysis distal to the large mass of bone still attached to the tibial metaphysis where it was overgrown and the fragments of bone that were adherent to the medial capsule. With this performed the tibia could externally rotate a little better and by exposing the lateral margin of the patella for a conservative lateral facetectomy, this gave us enough mobilization to gypsy the patella finally. Next the tibia was cut. We removed about 10 mm of bone from the high point of the lateral plateau. This did not get us quite to the base of the defect but did get is the point where there was intact bone posteromedially and anteromedially. The defect was curetted of fibrocartilage in the cysts and extended about a cm below the surface and it was an uncontained defect medially due to the fragments of bone that were displaced and attached to the medial capsule. We then had enough exposure to work on debriding the fragments attached the medial capsule we did this very carefully as was crucial to maintain the integrity of the superficial medial collateral ligament. We successfully removed removed all of the larger fragments the largest 1 actually peeling right off the superficial medial collateral ligament leaving a pristine. This attachment more distally in the tibial metaphysis still quite solid. The at this point the flexion gap was assessed. Lateral side measured 14 mm the medial side only 8 mm. The medial side was still quite tight as we did not nail get all around the posteromedial aspect of the medial plateau or sublux it anteriorly as was too tight to do so still. The femoral sizing guide was applied to the distal femur set at 5? of external rotation which matched [place] line well. Posterior referencing pinholes were placed and we applied the size 65 cutting block and the chamfer cuts were made. Fifty-five was just a little big. I wanted to wait to cut down is 62.5 until we knew we had proper rotation on the femur as we could adjusted if we did in downsized 625. With this done we addressed the tibial plateau. With the large defect medially we knew want to use a cemented gissel we chose the 80 mm cemented gissel is the 40 mm was felt to be too short given the size the tibial defect medially. The tibial plateau was sized to the vanguard 67 and the revision tray trial applie
[2021-08-15 19:17] LABS: Glucose Point of Care 159 mg/dl (65-105)
[2021-08-15] MEDS: fentaNYL CITRATE INJ (*CRX) 100 MCG/2 ML VIAL 25 MCG IV PUSH ×3 (19:22→19:49)
[2021-08-15] MEDS: SODIUM CHLORIDE 0.9% IV 1,000 ML 125 ML IV CONT (21:19)
[2021-08-15] MEDS: oxyCODONE HCL (*CRX) 5 MG TAB IR PO (21:24)
[2021-08-15] MEDS: VENLAFAXINE HCL XR 75 MG CAP.ER.24H PO (22:15)
--- NOTE | 2021-08-15 22:45 | ADMGEN ---
This patient, John Kwon, was admitted to Medical Room 257-01. Patient/family oriented to hospital policies and general routines including ID bracelet, bed and alarms, visiting hours, pain management, procedures, bathroom and other care routines, personal items, smoking policy, room service/diet, and visiting hours. Information on how to activate the Rapid Response Team has been discussed. Patient/Family are encouraged to report perceived risks to care and to ask questions if they do not understand what they are told or what they should do.
[2021-08-16] MEDS: ACETAMINOPHEN 500 MG TABLET 1000 MG PO ×3 (00:37→12:49)
[2021-08-16] MEDS: oxyCODONE HCL (*CRX) 5 MG TAB IR PO ×4 (00:37→15:06)
[2021-08-16] MEDS: MORPHINE SULFATE (*CRX) 2 MG/ML INJ IV PUSH ×2 (01:31→06:30)
[2021-08-16 02:10] VITALS: BP 123/77; PULSE 74; RESP 14; TEMP 36.8; O2SAT 98
[2021-08-16 02:10] LABS: Glucose Point of Care 143 mg/dl (65-105)
[2021-08-16] MEDS: LEVOTHYROXINE SODIUM 50 MCG TABLET PO (04:31)
[2021-08-16 05:29] LABS: Basophils Percent Auto 0.1 % (0.2-1.2); Hematocrit 26.8 % (37.0-47.0); Hemoglobin 8.7 g/dL (12.0-15.0); Immature Granulocyte Absolute 0.07 K/mm3 (0.00-0.031); Immature Granulocyte Percent A 0.5 % (0-0.5); Lymphocytes Absolute Auto 0.82 K/mm3 (0.9-3.2); Lymphocytes Percent Auto 5.3 % (18.3-44.2); Mean Corpuscular HGB Conc 32.5 g/dl (32-36); Mean Corpuscular Hemoglobin 31.5 pg (26-34); Mean Corpuscular Volume 97.1 fl (80-100); Mean Platelet Volume 11.2 fl (7.4-10.4); Monocytes Absolute Auto 1.1 K/mm3 (0.1-0.6); Monocytes Percent Auto 7.3 % (2.6-8.5); Neutrophils Absolute Auto 13.3 K/mm3 (1.3-6.7); Neutrophils Percent Auto 86.8 % (45.5-73.1); Platelet Count Result 168 k/mm3 (150-375); Red Blood Count 2.76 M/mm3 (4.2-5.4); Red Cell Distribution Width 14.7 % (11.5-14.5); White Blood Count 15.4 K/mm3 (4.5-10.0)
[2021-08-16 05:47] LABS: Anion Gap 7 mmol/L (8-16); Blood Urea Nitrogen 24 mg/dL (7-17); Calcium 7.6 mg/dL (8.4-10.2); Carbon Dioxide 23 mmol/L (22-30); Chloride 106 mmol/L (98-107); Estimated CRCL calculation 50 ml/min; Estimated Glomerular Filt Rate > 60; Glucose 147 mg/dL (65-110); Potassium 4.1 mmol/L (3.4-5.0); Sodium 136 mmol/L (137-145)
[2021-08-16 06:19] VITALS: BP 110/46; PULSE 64; RESP 16; TEMP 36.9; O2SAT 98
--- NOTE | 2021-08-16 07:10 | PM.PNORT ---
Subjective Subjective Date/Time Seen: 08/16/21 07:10POD 1 alert avss hgb-8.7, dressing is dry, NVI, pt has been up to chair and to restroom overnight. No nausea, pt did need 2 doses of morphine overnight for pain control, did advise her she can take to oxycodone for pain, will start celebrex this am which will help pain control. Plan to have work with PT today and she contines to do well ,will send home this afternoon Objective Data Vital Signs Vital Signs: Vital Signs - 24 hr 08/15/21 10:11 08/15/21 18:53 08/15/21 19:06 Temperature 36.8 C 36.6 C Pulse Rate 59 L 66 62 Respiratory Rate 18 20 19 Blood Pressure 151/69 H 100/45 L 115/62 Pulse Oximetry 100 100 100 08/15/21 19:21 08/15/21 19:37 08/15/21 19:52 Temperature Pulse Rate 64 69 67 Respiratory Rate 14 17 16 Blood Pressure 105/54 L 114/52 L 119/56 L Pulse Oximetry 100 99 94 08/15/21 20:07 08/15/21 20:40 08/15/21 21:16 Temperature 36.9 C 36.9 C Pulse Rate 64 64 61 Respiratory Rate 16 16 18 Blood Pressure 114/59 L 124/48 L 115/59 L Pulse Oximetry 100 99 100 08/15/21 22:02 08/16/21 02:10 08/16/21 06:19 Temperature 36.8 C 36.9 C Pulse Rate 61 74 64 Respiratory Rate 18 14 16 Blood Pressure 123/77 110/46 L Pulse Oximetry 100 98 98 Intake/Output Intake/Output: Intake & Output 08/13/21 08/14/21 08/15/21 08/16/21 23:59 23:59 23:59 23:59 Intake Total 1250 300 Output Total 600 Balance 1250 -300 Meds/Results Medications: Active Medications Generic Name Dose Route Start Last Admin Trade Name Freq PRN Reason Stop Dose Admin Acetaminophen 1,000 mg 08/16/21 00:00 08/16/21 04:24 Acetaminophen 500 Mg Tablet PO 1,000 mg Q6HR ALPHONSO Administration Allopurinol 100 mg 08/16/21 09:00 Allopurinol 100 Mg Tablet PO Q12HR ALPHONSO Apixaban 2.5 mg 08/16/21 09:00 Apixaban 2.5 Mg Tablet PO Q12HR [facility] Cephalexin HCl 500 mg 08/16/21 12:05 Cephalexin 500 Mg Capsule PO 08/30/21 12:04 Q6HR [facility] Cefazolin Sodium 1 gm in 50 mls @ 100 mls/hr 08/15/21 21:00 08/16/21 04:55 Ancef 1 Gm/D5w 50 Ml Pm IVPB 08/16/21 13:29 Infused Q8H [facility] Infusion Vancomycin HCl 1,000 mg in 250 mls @ 250 mls/hr 08/15/21 22:00 08/15/21 23:23 Vancomycin 1,000 Mg/D5w 250 Ml IVPB 08/16/21 10:59 Infused Q12H [facility] Infusion Lactobacillus Acidophilus 2 tablet 08/16/21 09:00 Acidophilus/Bulgaricus Chewable Tablet PO 09/15/21 08:59 DAILY [facility] Levothyroxine Sodium 50 mcg 08/16/21 06:30 08/16/21 04:31 Levothyroxine Sodium 50 Mcg Tablet PO 50 mcg DAILY@0630 [facility] Administration Loratadine 10 mg 08/16/21 09:00 Loratadine 10 Mg Tablet PO 09/15/21 08:59 BID [facility] Metformin HCl 500 mg 08/16/21 09:00 Metformin Hcl 500 Mg Tablet PO QAM [facility] Miscellaneous Information 0 each 08/15/21 00:01 Pravastatin Every Other Day When Is Next Dose Due? XX 09/14/21 00:00 CLARIFY [facility] Morphine Sulfate 2 mg 08/15/21 22:40 08/16/21 06:30 Morphine Sulfate (*Crx) 2 Mg/Ml Inj IV PUSH 08/16/21 23:59 2 mg Q1H PRN Administration Pain Rated 7-10 Multivitamins Therapeutic 2 tablet 08/16/21 09:00 Multivitamins Therapeutic Tab (*Bkc) PO DAILY [facility] Naloxone HCl 0.1 mg 08/15/21 20:25 Naloxone Hcl 0.4 Mg/Ml Vial IV PUSH Q2M PRN Opiate Reversal Nebivolol 20 mg 08/16/21 09:00 Nebivolol Hcl 5 Mg Tablet PO QAM [facility] Olmesartan 40 mg 08/16/21 09:00 Olmesartan Medoxomil 20 Mg Tablet PO 04/09/22 08:59 QAM ALPHONSO Oxycodone HCl 5 mg 08/15/21 21:00 08/16/21 04:24 Oxycodone Hcl (*Crx) 5 Mg Tab Ir PO 08/16/21 23:59 5 mg Q4H ALPHONSO Administration Oxycodone HCl 5 mg 08/15/21 20:25 Oxycodone Hcl (*Crx) 5 Mg Tab Ir PO Q4H PRN Pain Rated 4-10 Polyethylene Glycol 17 gm 08/16/21 09:00 Polyethylene Glycol 3350 17 Gm Powd.Pack PO QAM [facility] Pravastatin Sodium 10 mg 08/15/21 20:25 Pravastatin Sodium 10 Mg Tablet PO Q48H ALPHONSO
--- NOTE | 2021-08-16 07:22 | PM.DS ---
DS: Admitting Diagnosis Discharge Date 08/16/21 Admitting Diagnosis Right knee DJD DS: Summary Hospital Course Hospital Course: Stable Time Spent with Patient Time attestation: Total time spent providing and/or coordinating discharge services: 75-year-old female who underwent right total knee arthroplasty on 08/15/2021. With the procedure complications postoperatively she has been afebrile vital signs was stable neurovascularly she is intact. She was up multiple times the evening of surgery to the restroom as well sitting up in a chair eating. She did have increased pain overnight with a soft tissue block wore off and it required 2 doses of morphine. The morning of postop day 1 pain is well controlled. She is on scheduled Tylenol as well as oxycodone 5 mg. We are not using Celebrex on her. She is on Eliquis for DVT prophylaxis. She is weight-bearing as tolerated. Her dressing is dry. We will plan to have the patient work with physical therapy today if she continues to do well plan on discharging her home later today on 08/16. Hemoglobin was 8.7 this morning. Patient is asymptomatic from the anemia. Patient will also go home on a 10 day course of Keflex to her history of diabetes. Patient was advised to keep leg elevated at home prevent swelling but her exercise on a regular basis at home, every hour while awake. She has outpatient therapy starting next Friday. Patient was advised any questions or concerns when she goes home she is to call the office otherwise we will see her at her appointment dates. DS: Data Data Completed and Pending Labs on day of discharge: Labs from last 24 hours 08/16/21 08/16/21 08/16/21 04:33 04:33 02:07 WBC 15.4 H RBC 2.76 L Hgb 8.7 L D Hct 26.8 L MCV 97.1 MCH 31.5 MCHC 32.5 RDW 14.7 H Plt Count 168 MPV 11.2 H Immature Gran % (Auto) 0.5 Neut % (Auto) 86.8 H Lymph % (Auto) 5.3 L [place] % (Auto) 7.3 Eos % (Auto) 0.0 Baso % (Auto) 0.1 L Lymph # (Auto) 0.82 L [place] # (Auto) 1.1 H Eos # (Auto) 0.0 Baso # (Auto) 0.0 Abs Immat Gran (auto) 0.07 H Absolute Neuts (auto) 13.3 H Absolute Nucleated RBC 0.0 Nucleated RBC % 0.0 Sodium 136 L Potassium 4.1 Chloride 106 Carbon Dioxide 23 Anion Gap 7 L BUN 24 H Creatinine 0.90 Estim Creat Clear Calc 50 Estimated GFR > 60 Glucose 147 H POC Capillary Glucose 143 H Calcium 7.6 L 08/15/21 08/15/21 19:14 10:45 WBC RBC Hgb Hct MCV MCH MCHC RDW Plt Count MPV Immature Gran % (Auto) Neut % (Auto) Lymph % (Auto) [place] % (Auto) Eos % (Auto) Baso % (Auto) Lymph # (Auto) [place] # (Auto) Eos # (Auto) Baso # (Auto) Abs Immat Gran (auto) Absolute Neuts (auto) Absolute Nucleated RBC Nucleated RBC % Sodium Potassium Chloride Carbon Dioxide Anion Gap BUN Creatinine Estim Creat Clear Calc Estimated GFR Glucose POC Capillary Glucose 159 H 108 H Calcium Discharge Plan Discharge Patient Disposition: Home, Self-Care Discharge Instructions: YOUNG SIMMONS M.D [facility] [address] [place] [address] POST-OPERATIVE DISCHARGE INSTRUCTIONS TOTAL KNEE ARTHROPLASTY 1. When resting, lie on back with leg elevated above hear to minimize swelling. Significant swelling could indicate a blood clot and if this occurs call the office (or go to the ER) to have a venous ultrasound. 2. Do exercise 5 times a day. 3. Do not sit with leg down except for meals. 4. Wound Care: Nursing will give additional dressings at discharge. Patient to change dressing at home 1 week from surgery, then maintain until seen in office. 5. May shower with dressing in place. . Follow-up/Referrals: Young Simmons MD [Physician] - Keep Reg. Scheduled Appt. Discharge Medications: New polyethylene glycol 335
[2021-08-16 08:00] VITALS: PULSE 64; RESP 16; O2SAT 98
[2021-08-16 08:04] LABS: Glucose Point of Care 131 mg/dl (65-105)
[2021-08-16] MEDS: SENNA/DOCUSATE SODIUM TABLET 2 TAB PO (08:46)
[2021-08-16] MEDS: NEBIVOLOL HCL 5 MG TABLET 20 MG PO (08:46)
[2021-08-16] MEDS: OLMESARTAN MEDOXOMIL 20 MG TABLET 40 MG PO (08:46)
[2021-08-16] MEDS: CHOLECALCIFEROL 1,000 UNITS TABLET 2000 UNITS PO (08:47)
[2021-08-16] MEDS: metFORMIN HCL 500 MG TABLET PO (08:47)
[2021-08-16] MEDS: MULTIVITAMINS THERAPEUTIC TAB (*BKC) 2 TABLET PO (08:47)
[2021-08-16] MEDS: LORATADINE 10 MG TABLET PO (08:48)
[2021-08-16] MEDS: APIXABAN 2.5 MG TABLET PO (08:48)
[2021-08-16] MEDS: allopurinoL 100 MG TABLET PO (08:48)
[2021-08-16] MEDS: polyethylene glycoL 3350 17 GM POWD.PACK PO (08:49)
[2021-08-16] MEDS: ACIDOPHILUS/BULGARICUS CHEWABLE TABLET 2 TABLET PO (08:49)
--- NOTE | 2021-08-16 10:14 | WPDANESPN ---
Anes - Prog Note Post-Op Date/Time: 08/16/21 10:14 Cardiovascular status: normal Respiratory status: normal Airway patency: baseline Mental status: baseline Post-Op hydration status: normal Vital Signs: Last Vital Signs Temp 36.9 C 08/16/21 06:19 Pulse 64 08/16/21 08:00 Resp 16 08/16/21 08:00 BP 110/46 L 08/16/21 06:19 Pulse Ox 98 08/16/21 08:00 Pain Score (VAS): 0 I/O: Intake & Output 08/15/21 08/16/21 08/16/21 23:59 07:59 15:59 Intake Total 600 300 250 Output Total 600 Balance 600 -300 250 Laboratory Tests 08/16/21 04:33 08/16/21 04:33 08/15/21 08/15/21 08/16/21 10:45 19:14 02:07 WBC RBC Hgb Hct MCV MCH MCHC RDW Plt Count MPV Immature Gran % (Auto) Neut % (Auto) Lymph % (Auto) [place] % (Auto) Eos % (Auto) Baso % (Auto) Lymph # (Auto) [place] # (Auto) Eos # (Auto) Baso # (Auto) Abs Immat Gran (auto) Absolute Neuts (auto) Absolute Nucleated RBC Nucleated RBC % Sodium Potassium Chloride Carbon Dioxide Anion Gap BUN Creatinine Estim Creat Clear Calc Estimated GFR Glucose POC Capillary Glucose 108 H 159 H 143 H Calcium 08/16/21 08/16/21 08/16/21 04:33 04:33 07:50 WBC 15.4 H RBC 2.76 L Hgb 8.7 L D Hct 26.8 L MCV 97.1 MCH 31.5 MCHC 32.5 RDW 14.7 H Plt Count 168 MPV 11.2 H Immature Gran % (Auto) 0.5 Neut % (Auto) 86.8 H Lymph % (Auto) 5.3 L [place] % (Auto) 7.3 Eos % (Auto) 0.0 Baso % (Auto) 0.1 L Lymph # (Auto) 0.82 L [place] # (Auto) 1.1 H Eos # (Auto) 0.0 Baso # (Auto) 0.0 Abs Immat Gran (auto) 0.07 H Absolute Neuts (auto) 13.3 H Absolute Nucleated RBC 0.0 Nucleated RBC % 0.0 Sodium 136 L Potassium 4.1 Chloride 106 Carbon Dioxide 23 Anion Gap 7 L BUN 24 H Creatinine 0.90 Estim Creat Clear Calc 50 Estimated GFR > 60 Glucose 147 H POC Capillary Glucose 131 H Calcium 7.6 L Post-procedural complaints: none Patient Feedback: Patient satisfied with anesthetic care.
[2021-08-16 10:15] VITALS: BP 126/58; PULSE 63; RESP 16; TEMP 36.7; O2SAT 100
[2021-08-16 11:29] LABS: Glucose Point of Care 148 mg/dl (65-105)
--- NOTE | 2021-08-16 11:29 | PCCCNOTE ---
On 08/16/21, the student, [Nathalie Simeon], provided care and completed [facility] documentation on this patient. I have reviewed the student's documentation and agree with the findings.
[2021-08-16] MEDS: CEPHALEXIN 500 MG CAPSULE PO (15:06)
== END 2021-08-16 16:27 | disposition home or self-care (01) ==
LOC: ANHSURGERY 09:33 → ANH2MED 20:40
PROVIDERS: PCP Internal Medicine; Visit Provider Orthopaedic Surgery
PROC: (CPT 27447; principal; 2021-08-15 12:00)
DX: M17.11 Unilateral primary osteoarthritis, right knee (principal); E11.9 Type 2 diabetes mellitus without complications; I10 Essential (primary) hypertension; E78.5 Hyperlipidemia, unspecified; E03.9 Hypothyroidism, unspecified; G47.33 Obstructive sleep apnea (adult) (pediatric); K21.9 Gastro-esophageal reflux disease without esophagitis; F41.8 Other specified anxiety disorders; E66.9 Obesity, unspecified; Z68.38 Body mass index [BMI] 38.0-38.9, adult; Z79.84 Long term (current) use of oral hypoglycemic drugs; Z79.82 Long term (current) use of aspirin
CPT/HCPCS: 27447; 36415; 73560; 80048; 80307; 82040; 82948; 83036; 85025; 86850; 86900; 86901; 87070; 97110; 97116; 97161; 97165; A9270; C1713; C1770; C1776; J0171; J0690; J1100; J2270; J2405; J2704; J2710; J2795; J3010; J3370; J7030; J7120

== ENCOUNTER 2021-08-21 12:47 | Outpatient (RCR) | payer MEDICARE, SELFPAY ==
--- NOTE | 2021-08-21 13:48 | PTOPEVAL ---
Thank you for referring John Kwon to [facility].? The patient is scheduled to be seen for therapy? __3__x/week for 12 visits. Please review, sign, date and return this plan of care BRIGITTE. I agree with and certify that the following plan of care is medically necessary. 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,PERIPH NEUROPATHY Cardiovascular History Hx Hypercholesterolemia Yes Hx Hypertension Yes Hx Other Cardiac Disorders Yes: DR OROZCO FOR PRE-OP ASSESSMENT; aortic stenosis Respiratory History Hx Bronchitis Yes: FREQUENT IN PAST, USED INHALER IN PAST W/ BRONCHITIS Hx Sleep Apnea Yes: HAS CPAP Gastrointestinal History Hx Appendectomy Yes Hx Cholecystectomy Yes Hx Gastroesophageal Reflux Disease Yes: OCCASIONAL Genitourinary History Hx Other Genitourinary Disorders Yes: MILD STRESS INCONTINENCE Musculoskeletal History Hx Osteomyelitis Yes: 3RD DIGIT LT FOOT-PARTIAL AMPUTATION 3RD DIGIT LT FOOT 12/26/20 Hx Other Musculoskeletal Disorders Yes: PAIN TO RT KNEE, SEVERE OA RT KNEE Hematological History Hx Hematological Disorders No Significant History Endocrine History Hx Diabetes Yes Hx Hypothyroidism Yes HEENT History Hx Cataracts Yes: NO SURGERY Hx Sinus Problems Yes: SEASONAL ALLERGIES Hx Other HEENT Disorders Yes: READING GLASSES Integumentary History Hx Other Skin Disorders Yes: SM SCAB UNDER RT GREAT TOE & SM OPEN SPOT UNDER 3RD TOE RT FOOT Reproductive History Hx Post Menopausal Yes Psychosocial History Hx Anxiety Yes Hx Depression Yes Pain History Has Past Pain Affected Your Daily Life Yes: GENERALIZED, RT KNEE History of Long-Term Prescription Pain Yes: TRAMADOL AT INTERVALS X 4 Medication Use (Opiates) YEARS Anesthesia History Hx Anesthesia Reactions No Significant History Other History Hx Implanted Device Yes: LT HIP, LT SHOULDER Hx Recent Acute Infection Yes: OSTEOMYELITIS 3RD DIGIT
--- NOTE | 2021-09-10 17:07 | PTOPEVAL ---
Thank you for referring John Kwon to [facility].? The patient is scheduled to be seen for therapy? __2__x/week for 6 visits. Please review, sign, date and return this plan of care BRIGITTE. I agree with and certify that the following plan of care is medically necessary. 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,PERIPH NEUROPATHY Cardiovascular History Hx Hypercholesterolemia Yes Hx Hypertension Yes Hx Other Cardiac Disorders Yes: DR OROZCO FOR PRE-OP ASSESSMENT; aortic stenosis Respiratory History Hx Bronchitis Yes: FREQUENT IN PAST, USED INHALER IN PAST W/ BRONCHITIS Hx Sleep Apnea Yes: HAS CPAP Gastrointestinal History Hx Appendectomy Yes Hx Cholecystectomy Yes Hx Gastroesophageal Reflux Disease Yes: OCCASIONAL Genitourinary History Hx Other Genitourinary Disorders Yes: MILD STRESS INCONTINENCE Musculoskeletal History Hx Osteomyelitis Yes: 3RD DIGIT LT FOOT-PARTIAL AMPUTATION 3RD DIGIT LT FOOT 12/26/20 Hx Other Musculoskeletal Disorders Yes: PAIN TO RT KNEE, SEVERE OA RT KNEE Hematological History Hx Hematological Disorders No Significant History Endocrine History Hx Diabetes Yes Hx Hypothyroidism Yes HEENT History Hx Cataracts Yes: NO SURGERY Hx Sinus Problems Yes: SEASONAL ALLERGIES Hx Other HEENT Disorders Yes: READING GLASSES Integumentary History Hx Other Skin Disorders Yes: SM SCAB UNDER RT GREAT TOE & SM OPEN SPOT UNDER 3RD TOE RT FOOT Reproductive History Hx Post Menopausal Yes Psychosocial History Hx Anxiety Yes Hx Depression Yes Pain History Has Past Pain Affected Your Daily Life Yes: GENERALIZED, RT KNEE History of Long-Term Prescription Pain Yes: TRAMADOL AT INTERVALS X 4 Medication Use (Opiates) YEARS Anesthesia History Hx Anesthesia Reactions No Significant History Other History Hx Implanted Device Yes: LT HIP, LT SHOULDER Hx Recent Acute Infection Yes: OSTEOMYELITIS 3RD DIGIT
== END 2021-10-11 15:09 | disposition home or self-care (01) ==
LOC: CHSPT 12:47
PROVIDERS: Visit Provider Orthopaedic Surgery
DX: Z96.651 Presence of right artificial knee joint (principal)
CPT/HCPCS: 97016; 97110; 97116; 97161; 97530

== ENCOUNTER 2021-11-19 15:41 | Outpatient (CLI) | payer MEDICARE, SELFPAY ==
[2021-11-19 17:05] LABS: SARS-CoV-2 RNA PCR Positive (Negative)
== END 2021-11-19 15:42 | disposition home or self-care (01) ==
LOC: CHSLAB 15:46
PROVIDERS: PCP Internal Medicine; Visit Provider Family Medicine
DX: U07.1 COVID-19 (principal); J06.9 Acute upper respiratory infection, unspecified
CPT/HCPCS: C9803; U0003; U0005

== ENCOUNTER 2022-07-02 13:48 | Outpatient (CLI) | payer MEDICARE, SELFPAY ==
--- NOTE | ~2022-07-02 | US_ITS ---
EXAMINATION: US carotid duplex BI DATE: 07/02/2022 14:59 INDICATION: Bilateral carotid bruit TECHNIQUE: Grayscale, color Doppler, and pulsed Doppler images of the cervical carotid arteries were obtained. The degree of vessel stenosis is placed in one of the following categories: normal, <50%, 5 0-69%, >=70% but less than near-occlusion, near-occlusion, or total occlusion. Note that percent sten osis relative to normal distal artery lumen diameter is indirectly measured from velocity measurement s as described by Yair, et al. Radiology 2003; 229:340-346. COMPARISON: None. FINDINGS: RIGHT: The right common carotid artery (CCA) peak systolic velocity (PSV) is 64 cm/s. The right internal car otid artery (ICA) PSV is 73 cm/s. The right ICA end-diastolic velocity (EDV) is 26 cm/s. The right IC A/CCA PSV ratio is 1.1. Grayscale and color Doppler images yield an estimate of <50% diameter reducti on from plaque in the ICA. The external carotid artery (ECA) PSV is 79 cm/s. There is antegrade flow in the right vertebral artery. LEFT: The left CCA PSV is 59 cm/s. The left ICA PSV is 75 cm/s. The left ICA EDV is 16 cm/s. The left ICA/C CA PSV ratio is 1.3. Grayscale and color Doppler images yield an estimate of <50% diameter reduction from plaque in the ICA. The ECA PSV is 57 cm/s. There is antegrade flow in the left vertebral artery. IMPRESSION: 1. <50% stenosis in the right internal carotid artery. 2. <50% stenosis in the left internal carotid artery. Reviewed, dictated and finalized at location L. PROJECT MANAGER
== END 2022-07-02 13:49 | disposition home or self-care (01) ==
PROVIDERS: PCP Internal Medicine; Visit Provider Internal Medicine
DX: R09.89 Other specified symptoms and signs involving the circulatory and respiratory systems (principal); I65.23 Occlusion and stenosis of bilateral carotid arteries
CPT/HCPCS: 93880

== ENCOUNTER 2023-05-07 11:48 | Emergency (ER) | payer MEDICARE, SELFPAY ==
--- NOTE | ~2023-05-07 | XR_ITS ---
EXAMINATION: XR knee LT 3V DATE: 05/07/2023 13:02 INDICATION: Left knee pain. Fall. TECHNIQUE: 4 views of left knee were obtained. COMPARISON: Left knee radiograph 12/01/2019 FINDINGS: Bone alignment is normal. No fracture. There is severe osteoarthritis of medial and patello femoral compartments and mild osteoarthritis of lateral compartment. There is a small knee joint effu rinku. IMPRESSION: 1. Severe left knee osteoarthritis. 2. Small left knee joint effusion. Reviewed, dictated and finalized at location A. POURER
--- NOTE | ~2023-05-07 | XR_ITS ---
EXAMINATION: XR knee RT 3V DATE: 05/07/2023 13:03 INDICATION: Right knee pain. Fall. TECHNIQUE: 3 views of right knee were obtained. COMPARISON: Right knee radiographs 08/15/2021 FINDINGS: There is a total right knee arthroplasty in near-anatomic alignment with patellar resurfaci ng. No periprosthetic lucency to suggest loosening or infection. No fracture. No knee joint effusion. IMPRESSION: 1. Total right knee arthroplasty in near-anatomic alignment. Reviewed, dictated and finalized at location A. LIANDEER LOOPER
--- NOTE | ~2023-05-07 | XR_ITS ---
EXAMINATION: XR pelvis 1-2V DATE: 05/07/2023 12:57 INDICATION: Chronic pelvic pain. Fall. TECHNIQUE: An anteroposterior view of the pelvis was obtained. COMPARISON: None. FINDINGS: Bone alignment is normal. There is a total left hip arthroplasty in near-anatomic alignment . No fracture. There is severe lumbar spondylosis. There is severe right hip osteoarthritis. Osteitis pubis is noted. Surgical clips in the right upper quadrant are likely from cholecystectomy. IMPRESSION: 1. Total left hip arthroplasty in near-anatomic alignment. 2. Severe right hip osteoarthritis. Reviewed, dictated and finalized at location A. TECH
--- NOTE | ~2023-05-07 | CT_ITS ---
EXAMINATION: CT brain wo con DATE: 05/07/2023 12:56 INDICATION: Head injury. TECHNIQUE: Computed tomography (CT) of the head was performed without intravenous contrast. The mA wa s adjusted according to patient size. Iterative reconstruction technique was employed. The dose-lengt h product was 605.33 mGy-cm. COMPARISON: None FINDINGS: There are scattered areas of low attenuation in the cerebral white matter, which is within normal limits for the patient's age. There is no intracranial hemorrhage, acute infarction, or abnorm al intracranial mass lesion. The ventricles are normal in size. There is mucosal thickening in the pa ranasal sinuses, worst in left maxillary sinus. There are fracture deformities of the nasal bones. Th e mastoid air cells are normal. There is an old left-sided maryse hole. There is frontal scalp soft tis maggie swelling. There are likely changes of ocular lens replacement surgeries. IMPRESSION: 1. Normal aging brain. 2. Age-indeterminate fracture deformities of the nasal bones. Reviewed, dictated and finalized at location A. STRIAL SALES MANAGER
--- NOTE | ~2023-05-07 | CT_ITS ---
EXAMINATION: CT facial & cervical spine wo DATE: 05/07/2023 12:57 INDICATION: Status post fall. Abrasions. Facial and neck pain. TECHNIQUE: Computed tomography (CT) of the maxillofacial region and cervical spine was performed with out intravenous contrast. The dose-length product was 416.98 mGy-cm. Automated exposure control and i terative reconstruction technique were employed. COMPARISON: None FINDINGS: MAXILLOFACIAL CT: There is mild nasal soft tissue swelling. Nondisplaced fracture distal aspect of the nasal bone. Righ tward nasal septal deviation. Mucosal thickening present in the maxillary sinuses, left greater than right. Mandible intact. Lamina papyracea are intact bilaterally. No orbital floor fracture. Zygomatic arches and pterygoid plates within normal limits. Temporal mandibular joints are symmetric. CERVICAL SPINE CT: Odontoid process within normal limits. There is carotid atherosclerosis. There is disc narrowing at C 4-5, C5-6, C6-7 and C7-T1. There are prominent dorsal osteophytes at C5-6. No acute fracture is ident ified. No evidence for perched facet. Craniovertebral junction within normal limits. Mild levocurvatu re of the cervical spine. IMPRESSION: 1. Nondisplaced nasal fracture, age indeterminate. 2: Severe cervical spondylosis. No acute fracture of the cervical spine. Reviewed, dictated and finalized at location B. GER
--- NOTE | 2023-05-07 11:57 | ED.FALL ---
HPI - Fall General Chief Complaint: Fall Stated Complaint: fall/face injury Time Seen by Provider: 05/07/23 11:56 Source: patient and EMS Mode of arrival: ambulatory History of Present Illness HPI Narrative: 77-year-old female with a history of obesity, BRIJESH, anxiety /depression, diabetes mellitus, dyslipidemia, hypothyroidism, arthritis, subdural hematoma status post maryse holes in 1989, status post right knee arthroplasty lost balance and fell on the road. No loss of consciousness. She presents Via EMS with -- bilateral knee pain with abrasions -- 2 cm hematoma on the forehead -- nasal swelling with epistaxis chronic shoulder pain and back pain. Denied new neck pain patient denies taking any anticoagulation but her medication list states that she is on Eliquis. MD complaint: fall Onset (ago): hour(s) ( 1 hour ago) Fall from: standing Fall witnessed: no Place fall occurred: street Loss of consciousness: none Prolonged down time: no Symptoms prior to fall: none Context: tripped/slipped Location of injury: face and other ( bilateral knees) Location of injury - extremities: Bilateral: knee Severity: mild Related Data Home Medications Medication Instructions Recorded Confirmed Lactobacil.acidophilus-Bifido.animalis 2 cap PO DAILY 12/22/20 08/15/21 5 billion cell sprinkle capsule (Probiotic) allopurinol 100 mg tablet 100 mg PO BID 12/22/20 08/08/21 cetirizine 10 mg tablet (Zyrtec) 10 mg PO BID 12/22/20 08/08/21 colchicine 0.6 mg tablet 0.6 mg PO BID 12/22/20 08/08/21 epinephrine 0.3 mg/0.3 mL 0.3 mg subcut PRN PRN HIVES 12/22/20 08/08/21 injection, auto-injector levothyroxine 50 mcg tablet 50 mcg PO QAM 12/22/20 08/15/21 metformin 500 mg tablet 500 mg PO QAM 12/22/20 08/08/21 multivitamin 2 tablet PO DAILY 12/22/20 08/15/21 nebivolol 20 mg tablet (Bystolic) 20 mg PO QAM 12/22/20 08/15/21 olmesartan 40 mg tablet 40 mg PO QAM 12/22/20 08/08/21 pravastatin 20 mg tablet 10 mg PO EVERY OTHER DAY 12/22/20 08/08/21 Allergies Allergy/AdvReac Type Severity Reaction Status Date / Time Sulfa (Sulfonamide Allergy Rash Verified 08/15/21 23:33 Antibiotics) Tetracyclines Allergy Hives Verified 08/15/21 23:33 Review of Systems Review of Systems: All systems reviewed & are unremarkable except as noted in HPI and below Constitutional: Constitutional: Reports as per HPI and Reports no additional constitutional complaints Eyes: Eyes: Reports as per HPI and Reports no additional eye complaints ENT: Reports system reviewed and no additional complaints, except as documented and Reports as per HPI Comments: epistaxis nasal swelling Cardiovascular: Cardiovascular: Reports as per HPI and Reports no additional cardiovascular complaints Respiratory: Respiratory: Reports as per HPI and Reports no additional respiratory complaints Gastrointestinal: Gastrointestinal: Reports as per HPI and Reports no additional gastrointestinal complaints Genitourinary: Genitourinary: Reports no additional female genitourinary complaints and Reports as per HPI Musculoskeletal: Musculoskeletal: Reports no additional musculoskeletal complaints and Reports as per HPI Comments: bilateral knee pain Integumentary/Breasts: Skin/Breast: Reports system reviewed and no additional complaints, except as docu Comments: bilateral knee abrasions forehead hematoma nasal abrasion/swelling Neurologic: Reports system reviewed and no additional complaints, except as documented and Reports as per HPI Psychiatric: Psychiatric: Reports no additional psychiatric complaints and Reports as per HPI Endocrine: Endocrine: Reports no additional endocrine complaints and Reports as per HPI Hematologic/Lymphatic: Hematologic/Lymphatic: Reports no additional hematologic/lymphatic complaints and Reports as per HPI Allergic/Immunologic: Allergic/Immunologic: Reports no additional allergic/immunologic complaints and Reports as per HPI PMFSH P
[2023-05-07 12:02] VITALS: BP 153/88; PULSE 84; RESP 20; TEMP 36.7; O2SAT 98
[2023-05-07] MEDS: TETANUS,DIPHTHERIA,AC PERTUSSIS ADULT 0.5 ML (ADACEL) IM (13:20)
[2023-05-07] MEDS: HYDROcodone/acetaminophen (*CRX) 5-325 MG TABLET 1 TAB PO (13:21)
== END 2023-05-07 14:02 | disposition home or self-care (01) ==
PROVIDERS: Emergency Provider Internal Medicine Critical Care Medicine; PCP Internal Medicine
DX: S02.2XXA Fracture of nasal bones, initial encounter for closed fracture (principal); M25.462 Effusion, left knee; M19.90 Unspecified osteoarthritis, unspecified site; S80.212A Abrasion, left knee, initial encounter; S80.211A Abrasion, right knee, initial encounter; E11.9 Type 2 diabetes mellitus without complications; E78.5 Hyperlipidemia, unspecified; E03.9 Hypothyroidism, unspecified; I10 Essential (primary) hypertension; Z79.01 Long term (current) use of anticoagulants; Z23 Encounter for immunization; W01.0XXA Fall on same level from slipping, tripping and stumbling without subsequent striking against object, initial encounter
CPT/HCPCS: 70450; 70486; 72125; 72170; 73562; 90471; 90715; 99284; A9270

== ENCOUNTER 2023-06-26 10:52 | Outpatient (CLI) | payer MEDICARE, SELFPAY ==
[2023-06-26 11:13] LABS: Basophils Absolute Auto 0.05 K/mm3 (0.00-0.10); Basophils Percent Auto 0.7 % (0.0-1.0); Eosinophils Absolute Auto 0.26 K/mm3 (0.02-0.50); Eosinophils Percent Auto 3.9 % (1.0-6.0); Hematocrit 39.6 % (35.0-42.0); Hemoglobin 12.2 g/dL (11.7-13.8); Immature Granulocyte Absolute 0.03 K/mm3 (0.00-0.00); Immature Granulocyte Percent A 0.4 % (0.0-0.0); Lymphocytes Absolute Auto 2.01 K/mm3 (1.10-4.50); Mean Corpuscular HGB Conc 30.8 g/dL (32.0-36.0); Mean Corpuscular Hemoglobin 29.5 pg (27.0-31.0); Mean Corpuscular Volume 95.9 fL (78.0-102.0); Mean Platelet Volume 9.9 fl (9.2-11.8); Monocytes Absolute Auto 0.56 K/mm3 (0.10-0.90); Monocytes Percent Auto 8.4 % (2.0-11.0); Neutrophils Absolute Auto 3.8 K/mm3 (1.7-7.2); Neutrophils Percent Auto 56.6 % (50.0-70.0); Platelet Count Result 247 K/mm3 (150-420); Red Blood Count 4.13 M/mm3 (4.20-5.40); Red Cell Distribution Width 14.7 % (11.6-14.4); White Blood Count 6.7 K/mm3 (4.8-10.8)
[2023-06-26 11:20] LABS: Hemoglobin A1C 6.1 % (<5.7)
[2023-06-26 12:28] LABS: Alanine Aminotransferase 26 U/L (14-59); Albumin Level 3.6 g/dL (3.4-5.0); Alkaline Phosphatase 140 U/L (46-116); Anion Gap 10 mmol/L (8-16); Aspartate Amino Transferase 40 U/L (15-37); Bilirubin,Total 0.3 mg/dL (0.00-1.00); Blood Urea Nitrogen 29 mg/dL (7-18); Calcium 8.9 mg/dL (8.5-10.1); Carbon Dioxide 28 mmol/L (21-32); Chloride 101 mmol/L (98-108); Cholesterol 137 mg/dL (0-200); Creatine Kinase 98 U/L (26-192); Estimated Glomerular Filt Rate 54; Free T3 2.18 pg/mL (2.18-3.98); Glucose 106 mg/dL (70-99); HDL Direct 59 mg/dL (40-60); LDL Cholesterol Calculated 64 mg/dL (<130); Osmolality Calculated 293 mOsm/kg (285-295); Potassium 4.7 mmol/L (3.5-5.1); Sodium 139 mmol/L (136-145); Thyroid Stimulating Hormone 1.29 uIU/mL (0.36-3.74); Total Protein 7.4 g/dL (6.4-8.2); Triglycerides 68 mg/dL (0-150); Uric Acid 3.8 mg/dL (2.6-6.0)
== END 2023-06-26 10:53 | disposition home or self-care (01) ==
LOC: CHSLAB 10:54
PROVIDERS: PCP Internal Medicine; Visit Provider Internal Medicine
DX: I10 Essential (primary) hypertension (principal); E79.0 Hyperuricemia without signs of inflammatory arthritis and tophaceous disease; E04.2 Nontoxic multinodular goiter; E11.42 Type 2 diabetes mellitus with diabetic polyneuropathy; E03.4 Atrophy of thyroid (acquired)
CPT/HCPCS: 36415; 80053; 80061; 82043; 82550; 83036; 84439; 84443; 84481; 84550; 85025

== ENCOUNTER 2023-07-11 08:42 | Outpatient (CLI) | payer MEDICARE, SELFPAY ==
--- NOTE | ~2023-07-11 | XR_ITS ---
AP and lateral views of the right hip Clinical history: Pain Findings: No acute fracture or dislocation is seen. Osseous alignment is anatomic. There is mild dege nerative change of the right hip joint. Soft tissues are unremarkable. Impression: Mild degenerative change of the right hip joint. Reviewed, dictated and finalized at location . BLADDER MAKER Impression: Mild degenerative change of the right hip joint.
== END 2023-07-11 08:43 | disposition home or self-care (01) ==
PROVIDERS: PCP Internal Medicine; Visit Provider Internal Medicine
DX: M25.551 Pain in right hip (principal)
CPT/HCPCS: 73502

== ENCOUNTER 2024-01-14 08:14 | Outpatient (RCR) | payer MEDICARE, SELFPAY ==
--- NOTE | 2024-01-14 09:05 | PTOPEVAL1 ---
Assessment and note entered by Avel Llanos Evaluation Information Assessment Status Evaluation ICD-10 Condition Codes (PT) Pain in right hip M25.551 Onset 01/12/24 Subjective Information Pt. reports she underwent knee replacement about 3 years ago. She reports that she recently went to the doctor who was concerned about her lose of ROM in the right knee. She reports she has developed problems with the right hip recently and is having pain radiating down the outside of the right thigh. She reports that she is having more trouble getting herself out of bed. She states that getting out of a chair is becoming more difficult. She states that she is currently using a ww all the time due to some recent falls. She reports that she continues to drive. She reports she has a disabled and cares for him. She reports that her goal is to improve her strength and improve her ability to walk. Reported Pain Level Pain Score 3: Self Report Assessment PT Clinical Summary Pt. is a 78 year old female who enters the clinic due to functional decline and impaired knee mobility, with right hip pain. She presents with impaired functional mobility, impaired gait, impaired strength, impaired balance, impaired ROM and pain. Continued skilled PT is indicated in order to improve these areas to allow for improved ability to complete IADL's and improved gait efficiency. Plan of Care Interventions Electrical Stimulation,Gait Training,Hot Pack/Cold Pack,Manual Therapy,Neuro Re-education,Patient/ Caregiver Educati,Therapeutic Activities, Therapeutic Exercise PT Services Indicated Yes Treatment Frequency and 3x/week x 12 visits Duration These treatments will address the objective and functional deficits as defined above. The patient will be advanced safely and appropriately in order for the patient to progress towards his/her prior level of function. Additional exercises will be introduced and as well as a comprehensive home exercise program upon discharge, if needed, ?to ensure carryover of functional gains achieved in the clinic. This treatment plan has been reviewed and agreement upon by the patient.
--- NOTE | 2024-01-14 09:05 | OPREHPOC ---
Outpatient Therapy Plan of Care This is a Multidisciplinary Plan of Care that may contain components documented by all disciplines (PT, OT, and ST.) PT Problem 1 PT Problem #1 Knowledge Deficit PT Goal 1 Goal Pt. will be independent with a HEP addressing l.e. and core strength Target Visit 2 PT Problem 2 PT Problem #2 Impaired Strength PT Goal 1 Goal Pt. will present with 4/5 gross l.e. strength or greater. Target Visit 12 PT Problem 3 PT Problem #3 Impaired Balance PT Goal 1 Goal Improve tinetti score to 19 or greater Target Visit 12 PT Problem 4 PT Problem #4 Impaired Gait PT Goal 1 Goal Ambulate a distance of 600-700' in 6 minutes indicating improved gait efficiency. Target Visit 12 PT Problem 5 PT Problem #5 Impaired Range of Motion PT Goal 1 Goal pt. will demonstrate 0-100 degrees of right knee active ROM. Target Visit 12
--- NOTE | 2024-02-18 14:55 | PCPTNOTE ---
Patient called & cancelled scheduled appointment this date due to having a headache. She will try to attend on 02/20/24. -Lilia Uribe PT
--- NOTE | 2024-02-25 13:07 | PCPTNOTE ---
Cancelled session. Reports she has an appointment with Dr. Peres. Will check with us after her appointment.
--- NOTE | 2024-02-27 09:06 | OPREHPOC ---
Outpatient Therapy Plan of Care This is a Multidisciplinary Plan of Care that may contain components documented by all disciplines (PT, OT, and ST.) PT Problem 1 PT Problem #1 Knowledge Deficit PT Goal 1 Goal / Goal Update Pt. will be independent with a HEP addressing l.e. and core strength Target Visit 2 Progress Met PT Problem 2 PT Problem #2 Impaired Strength PT Goal 1 Goal / Goal Update Pt. will present with 4/5 gross l.e. strength or greater. Target Visit 17 PT Problem 3 PT Problem #3 Impaired Balance PT Goal 1 Goal / Goal Update -Improve tinetti score to 19 or greater. -TUG to display 15 seconds or less time to complete safely with rollator -5x sit to stand to display 20 seconds or less to complete safely Target Visit 17 PT Problem 4 PT Problem #4 Impaired Gait PT Goal 1 Goal / Goal Update Ambulate a distance of 600-700' in 6 minutes indicating improved gait efficiency. Target Visit 17 Progress Not Met PT Problem 5 PT Problem #5 Impaired Range of Motion PT Goal 1 Goal / Goal Update -pt. will demonstrate 0-100 degrees of right knee active ROM. -patient will reach to top of her bilateral feet when sitting and performing forward trunk flexion Target Visit 17
--- NOTE | 2024-02-27 09:07 | PTOPREEVAL ---
Assessment and note entered by JT File, PT Evaluation Information Assessment Status Re-evaluation ICD-10 Condition Codes (PT) Pain in right hip M25.551 Onset 01/12/24 Subjective Information patient reports she feels alright today. she reports she has been out of therapy this week due to a toe infection. she reports today to skilled PT for re-evaluation. she is still having pain in the R hip/lateral thigh and L knee. she reports the R hip/lateral thigh is the worst of the 2 areas of pain. she reports she does get injections to the L knee still, and reports her next injection is this coming friday. she reports she has gone to using her rollator walker at all times due to her poor balance and pain. Reported Pain Level Pain Score 1,3: Self Report Assessment PT Clinical Summary mrs. ruiz presents to skilled PT services today for her 11th skilled PT visit. she displays improvement in ambulation efficiency, but lacks her goal in this area still. she also displays improvements in LE rom and strength, but again still lacking in goal achievement in these areas. patient reports a goal of hers is to be able to more independently care for her feet. she currently struggles to be able to reach and attend to her feet for self care/dressing without AD. she was educated this may be a tough goal for her to achieve due to the limited mobility in both her hips and knees bilaterally. however, she was found to continue to need work and improvement in her balance and ambulation safety/efficiency. she is in agreement to continue skilled PT with majority of focus on improving her balance, strength, and ambulation with secondary focus on her mobility/ability to reach feet for self care/ dressing. Plan of Care Interventions Electrical Stimulation,Gait Training,Hot Pack/Cold Pack,Manual Therapy,Neuro Re-education,Patient/ Caregiver Educati,Therapeutic Activities, Therapeutic Exercise PT Services Indicated Yes Treatment Frequency and continue skilled PT 2x weekly for 6 more visits Duration These treatments will address the objective and functional deficits as defined above. The patient will be advanced safely and appropriately in order for the patient to progress towards his/her prior level of function. Additional exercises will be introduced and as well as a comprehensive home exercise program upon discharge, if needed, ?to ensure carryover of functional gains achieved in the clinic. This treatment plan has been reviewed and agreement upon by the patient.
--- NOTE | 2024-03-10 13:28 | PCPTNOTE ---
Pt. did not show for her scheduled appointment. Attempted to contact the pt. with no answer.
--- NOTE | 2024-03-12 14:11 | PCPTNOTE ---
Patient called & cancelled scheduled appointment this date.
--- NOTE | 2024-03-19 14:08 | PCPTNOTE ---
No call no show this date. Pt called, but did not answer.
== END 2024-04-13 23:59 | disposition home or self-care (01) ==
LOC: CHSPT 08:14
PROVIDERS: Visit Provider Orthopaedic Surgery
DX: M16.11 Unilateral primary osteoarthritis, right hip (principal)
CPT/HCPCS: 97014; 97110; 97112; 97161; 97750; G0283

== ENCOUNTER 2024-02-05 15:46 | Outpatient (CLI) | payer MEDICARE, SELFPAY ==
--- NOTE | ~2024-02-05 | MR_ITS ---
EXAMINATION: MR lumbar spine wo con DATE: 02/05/2024 16:35 INDICATION: Spinal stenosis, lumbar region. TECHNIQUE: Magnetic resonance imaging (MRI) of the lumbar spine was performed without intravenous con trast. COMPARISON: None FINDINGS: There is 8 degrees dextrocurvature of lumbar spine. There is mild chronic anterior wedging of T12 and L2 vertebral bodies. There are bridging endplate osteophytes from T11 to L3 with disc calc ifications from T11-T12 through L2-L3, consistent with diffuse idiopathic skeletal hyperostosis (DISH ). There is severely decreased disc height from L3-L4 through L5-S1. There is ligamentum flavum hyper trophy at the disc levels at L3-L4 and L4-L5. The distal spinal cord signal intensity is normal. The conus medullaris is at T12-L1. The following disc levels are specifically discussed: L1-L2: The disc is bulging. There is mild bilateral facet joint osteoarthritis. There is no neural fo raminal stenosis. There is mild central canal stenosis. L2-L3: The disc is bulging. There is mild bilateral facet joint osteoarthritis. There is mild lateral neural foraminal stenosis. There is mild central canal stenosis. L3-L4: The disc is bulging. There is severe bilateral facet joint osteoarthritis. There is mild right and moderate left neural foraminal stenosis. There is severe central canal stenosis. L4-L5: The disc is bulging and has an annular fissure. There is severe bilateral facet joint osteoart hritis. There is moderate bilateral neural foraminal stenosis. There is severe central canal stenosis . L5-S1: The disc is bulging and has an annular fissure. There is severe bilateral facet joint osteoart hritis. There is mild bilateral neural foraminal stenosis. There is mild central canal stenosis. IMPRESSION: 1. Severe lumbar spondylosis. 2. DISH. Reviewed, dictated and finalized at location A.
== END 2024-02-05 15:47 ==
LOC: MICIMG 15:47
PROVIDERS: PCP Internal Medicine; Visit Provider Orthopaedic Surgery
DX: M48.061 Spinal stenosis, lumbar region without neurogenic claudication (principal); M47.816 Spondylosis without myelopathy or radiculopathy, lumbar region; M48.16 Ankylosing hyperostosis [Forestier], lumbar region
CPT/HCPCS: 72148

== ENCOUNTER 2024-05-17 12:10 | Outpatient (CLI) | payer MEDICARE, SELFPAY ==
--- NOTE | ~2024-05-17 | MM_ITS ---
EXAMINATION: MM screening amelia BI w tone HISTORY: Screening TECHNIQUE: Craniocaudal and mediolateral oblique 3-D tomosynthesis images were obtained and synthetic 2-D images were generated. CAD analysis was submitted and interpreted. COMPARISON: No prior mammogram is available for comparison at this institution. BREAST PARENCHYMAL COMPOSITION: Not dense: There are scattered areas of fibroglandular density. FINDINGS: There is no evidence of suspicious mass, calcification, or architectural distortion to sugg est malignancy in either breast. There has been no suspicious interval change. IMPRESSION: 1. No mammographic evidence of malignancy. 2. Recommend routine screening mammography in one year. BI-RADS Category 1: Negative Reviewed, dictated and finalized at location B. ICAL INTERVIEWER
--- NOTE | ~2024-05-17 | DEXA_ITS ---
Bone Density Report Name: DINESH PEREZ Age: 78 Sex: Female Ethnicity: White Date of : 1945 Indication: postmenopausal; screening for osteoporosis; height loss; Referring Provider: Tianna Peres Study: Bone densitometry was performed. Exam Date: May 17, 2024 Accession number: [id number] Bone Density: Region BMD T-score Z-score Classification AP Spine(L1, L3, L4) 1.153 0.9 3.5 Normal Femoral Neck (Right) 0.710 -1.3 0.9 Osteopenia Total Hip (Right) 1.126 1.5 3.4 Normal World Health Organization criteria for BMD impression classify patients as: Normal (T-score at or above -1.0), Osteopenia (T-score between -1.0 and -2.5), or Osteoporosis (T-score at or below -2.5). 10-year Fracture Risk(1): Major Osteoporotic Fracture 9.8% Hip Fracture 1.7% Reported Risk Factors: [place] (), Neck BMD=0.710, BMI=42.9 (1) FRAX(R) Version 3.08. Fracture probability calculated for an untreated patient. Fracture probability may be lower if the patient has received treatment. Clinical Information Provided by Patient: Has used the following medications: Vitamin D, Calcium Patient maximum height was 66 Menopause Age: 46 Does not regularly consume dairy products Drinks caffeinated beverages Onset of menses at age 13 Number of children 0 Impression: The patient has low bone mass, based on the Right Femoral Neck T-score. The patient has an estimated ten-year risk of hip fracture of 1.7% and an estimated ten-year risk of major fracture of 9.8%, based on the WHO FRAX algorithm. Discussion: BONE DENSITY IS LOW AT ONE OR MORE SKELETAL SITES. This patient's lowest T-score is low at one or more skeletal sites. It meets the World Health Organization's (WHO) criteria for ?low bone mass? (T-score between -1.0 and -2.5). The patient's 10-year risk of fracture as calculated by FRAX is less than the threshold where pharmacological therapy is recommended by the National Osteoporosis Foundation (NOF). However, all treatment decisions require clinical judgment and consideration of individual patient factors, including patient preferences, comorbidities, previous drug use, risk factors not captured in the FRAX model (e.g., frailty, falls, vitamin D deficiency, increased bone turnover, interval significant decline in bone density) and possible under or overestimation of fracture risk by FRAX. The patient should follow a healthful lifestyle (good nutrition with adequate calcium and vitamin D, and appropriate weight-bearing exercise). Follow-Up: Consider repeating this study in 2 to 3 years to reassess this patient's status, or sooner if there is some new clinical indication. Reported by: ANDI on 05/17/2024 1:13:00 PM. Reviewed, dictated and finalized at location A.
== END 2024-05-17 12:11 | disposition home or self-care (01) ==
LOC: CHSIMG 12:13
PROVIDERS: PCP Internal Medicine; Visit Provider Internal Medicine
DX: Z12.31 Encounter for screening mammogram for malignant neoplasm of breast (principal); Z78.0 Asymptomatic menopausal state; M85.88 Other specified disorders of bone density and structure, other site
CPT/HCPCS: 77063; 77067; 77080

== ENCOUNTER 2024-07-08 13:43 | Outpatient (CLI) | payer MEDICARE, SELFPAY ==
--- NOTE | ~2024-07-08 | US_ITS ---
EXAMINATION: US retroperitoneal comp DATE: 07/08/2024 14:20 INDICATION: Hematuria and elevated creatinine TECHNIQUE: Multiple ultrasound grayscale images of the kidneys were obtained. COMPARISON: None. FINDINGS: The right kidney measures 9.4 x 5.4 x 5.1 cm. The left kidney measures 10.3 x 5.4 x 5.5 cm. The kidne ys demonstrate normal echogenicity. There is no hydronephrosis in either kidney. No stones identifie d. The bladder is normal. IMPRESSION: 1. Normal kidneys without hydronephrosis. Reviewed, dictated and finalized at location B. L COREMAKER
== END 2024-07-08 13:44 | disposition home or self-care (01) ==
LOC: CHSIMG 13:45
PROVIDERS: PCP Internal Medicine; Visit Provider Internal Medicine
DX: R31.9 Hematuria, unspecified (principal); R79.89 Other specified abnormal findings of blood chemistry
CPT/HCPCS: 76770

== ENCOUNTER 2024-11-08 14:57 | Outpatient (CLI) | payer MEDICARE, SELFPAY ==
--- OUTSIDE RECORDS SUMMARY | 2024-11-08 15:16 | XMS_ITS | Clinical Summary ---
Author Organization [facility] Address [address] [place] [address] Care Team Providers Care Professor Of Medicine Name Role Phone Tianna Peres MD Primary Care Provider [phone] Allergies Active Allergy Reactions Criticality Noted Date Comments Amlodipine Swelling Medium 11/17/2015 Sulfa (Sulfonamide Antibiotics) Rash Medium 11/07 Tetracycline Hives Medium 12/25/2018 Tetracyclines Unknown 11/19/2010 Medications hydrOXYchloroQU INE (PLAQUENIL) 200 mg tablet Active traMADol (ULTRAM) 50 mg tablet Take 50 mg by mouth every 6 (six) hours as needed for pain. Active acetaminophen (TYLENOL) 500 mg tablet Take 500 mg by mouth every 6 (six) hours as needed for pain. Active ASPIRIN ORAL Take 81 mg by mouth daily Active cholecalciferol (VITAMIN D-3) 2000 unit tablet Take 1 tablet by mouth daily Active EPINEPHrine 0.3 mg/0.3 mL auto-injection syringe Inject 0.3 mg into the muscle as instructed as needed 1 Active levothyroxine (SYNTHROID) 50 mcg tablet Take 50 mcg by mouth daily Active olmesartan (BENICAR) 40 mg tablet Take 40 mg by mouth daily 1 Active pravastatin (PRAVACHOL) 20 mg tablet Take 10 mg by mouth daily 1 Tablet Every Other Day 1 Active venlafaxine XR (EFFEXOR-XR) 75 mg 24 hr capsule Take 75 mg by mouth daily Active allopurinoL (ZYLOPRIM) 100 mg tablet Take 100 mg by mouth 2 (two) times a day Active colchicine (COLCRYS) 0.6 mg tablet Take 0.6 mg by mouth 2 (two) times a day Active metFORMIN (GLUCOPHAGE) 500 mg tablet Take 500 mg by mouth daily Active nebivoloL (BYSTOLIC) 20 mg tablet Take 20 mg by mouth daily 0 Active mirabegron ER (MYRBETRIQ) 50 mg tablet extended release 24 hr Myrbetriq 50 mg tablet,extended release Active cetirizine (ZyrTEC) 10 mg capsule Zyrtec 0 Active diclofenac sodium (VOLTAREN) 1 % gel Voltaren Active Active Problems Problem Noted Date Diagnosed Date Osteomyelitis of third toe of left foot 01/10/20 21 Assessment & Plan (02/14/2021 8:48 PM CDT): Ms. 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 Cultures of the toe grew Enterococcus spp, Enterobacter cloacae, and Coag negative Staph. We discussed risks and benefits of treatment, but given she is on some immunosuppressant medication, we decided on treatment (through shared-decision making). She has completed 5 weeks of therapy with oral antibiotics. She reports no adverse effects. Her recent x-ray demonstrated no residual disease of the bone. We discussed stopping antibiotics. Plan: - Complete treatment - Return to clinic PRN Assessment & Plan (02/01/2021 1:01 PM CDT): Ms. 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 Her wound is recovering well. She has not experienced systemic symptoms of infection. Cultures of the toe grew Enterococcus spp, Enterobacter cloacae, and Coag negative Staph. We discussed risks and benefits of treatment, but given she is on some immunosuppressant medication, we decided on treatment (through shared-decision making). She has completed 3 weeks of therapy with oral antibiotics. She reports no adverse effects. We will plan 3 more weeks of treatment with in person follow up for end of treatment evaluation. Plan: - Cont amox/clav and ciprofloxacin - CMP, CBC, ESR, CRP today - RTC in 3 weeks for in person evaluation Assessment & Plan (01/10/2021 9:28 AM CDT): Ms. 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 Her wound is recovering well. She has not experienced systemic symptoms of infection. Cultures of the toe grew Enterococcus spp, Enterobacter cloacae, and Coag negative Staph. We discussed risks and benefits of treatment, but given she is on some immunosuppressant medication, we decided on treatment (through shared-decision making). See full plan below. Plan: - We discussed risks and benefits of treatment - given she is mildly immunosuppressed I would favor some treatment - we have discussed possible truncated 3 week course based on how she tolerates treatment. --- Will plan to treat as osteomyelitis with 6 weeks of targeted therapy --- ESR and CRP today --- Start amox-clav 875 mg BID and Cipro 500 mg BID --- ECG in clinic to evaluate QTc (given she is also on HCQ). --- Discussed possible adverse effects of medications --- RTC in 3 weeks Antibiotic Monitoring: Augmentin can be associated with GI intolerance, diarrhea, rash, leukopenia, thrombocytopenia, interstitial nephritis, LFT elevation, cholestatic hepatitis. Ciprofloxacin has been associated with nausea, diarrhea, headaches, insomnia, restlessness, dizziness. Rarely, it may be associated with tendon rupture (particularly in patients over the age of 60, those concurrently on steroids, and heart/lung/kidney transplant recipients), photosensitivity, QTc prolongation, transaminase elevation, peripheral neuropathy, seizures, interstitial nephritis. CBC and CMP should be monitored weekly while on this medication. Do not take this antibiotic with milk or other calcium enriched drinks or products such as fortified orange juice or Tums. Do not take with antacids, multivitamins, iron tablets, magnesium, or aluminum. If you must take the aforementioned products, take them 2 hours after or 6 hours before taking the antibiotic. 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 12/25/2018 Closed fracture of proximal end of humerus 08/18 Arthralgia of hip 10/14/2016 Polyarthropathy 11/19/2010 Encounters Date Type Department Care Team Description 08/26/2024 Telephone [facility] Orthopaedic Surgery [address] [place] [address] [place] [id number] Jazmyn Garcia RN from Last 3 Months Surgical History Surgery Date Site/Laterality Comments [place] CHOLECYSTECTOMY Cholecystectomy - (Added by TW Conv) APPENDECTOMY 06/09/1974 - 06/08/1975 BRAIN SURGERY 06/09/1989 - 06/08/1990 FRACTURE SURGERY 06/09/1967 - 06/08/1968 JOINT REPLACEMENT 2014, 2016, 2021 Medical History Medical History Date Comments Dermatographic urticaria Pressur e-induced Urticaria - (Added by TW Conv) Personal history of other en docrine, nutritional and metabolic disease History of diabetes mellitus - (Added by TW Conv) Personal history of other en docrine, nutritional and metabolic disease History of type 2 di abetes mellitus - (Added by TW Conv) Personal history of other di seases of the digestive system History of esophageal reflux - (Added by TW Conv) Personal history of other di seases of the circulatory system Personal history of subdural hematoma - (Added by TW Conv) Personal history of other di seases of the circulatory system History of hypertension - (A dded by TW Conv) Personal history of other di seases of the circulatory system History of vasculitis - (Add ed by TW Conv) Hyperuricemia without signs of inflammatory arthritis and tophaceous disease Asymptomatic hyperuricemia - (Added by TW Conv) Other specified anxiety disorders Depression with anxiety - (Added by TW Conv) Personal history of diseases of skin or subcutaneous tissue History of urticaria - (Adde d by TW Conv) Hypertension Diabetes mellitus (HCC) Arthritis Depression Sleep apnea 2007 Family History Medical History Relation Name Comments Early Brother Atif Bustamante Hypertension Brother Atif Bustamante Hypertension - (Added by TW Conv) Early Father's Brother Marko Bustamante Memory loss Maternal Grandmother Brooklynn Toyuval Obesity Maternal Grandmother Brooklynn Toyuval Stroke Maternal Grandmother Brooklynn Toyuval Diabetes Mother Mariann Irahetayuval [place] Diabetes Mellitus - (Added by TW Conv) Diabetes type II Mother Mariann Toyuval Bustamante Type 2 Diabetes Mellitus - (Added by TW Conv) Hypertension Mother Mariann Irahetayuval Bustamante Hypertens ion - (Added by TW Conv) Obesity Mother Mariann Irahetayuval [place] Osteoarthritis Mother Mariann Bustamante Osteoar thritis - (Added by TW Conv) Stroke Mother Mariann Bustamante Vision loss Paternal Grandfather Chucho Bustamante Early Paternal Grandmother Sophia Wise nschlager Robby Hypertension Sister 1 Antoni Sullivan Kidney disease Sister 1 Antoni Sullivan End Stage Renal Disease - (Added by TW Conv) Hypertension Sister 2 Hypertension - (Added by TW Conv) Hypertension Sister 3 Smiley Bustamante Giovanna Multiple sclerosis Sister 3 Smiley Bustamante Giovanna Mu ltiple Sclerosis - (Added by TW Conv) Cancer Sister 4 Felisa Gravesche Brimer Relation Name Status Comments Brother Atif Bustamante Father's Brother Marko Bustamante Maternal Grandmother Brooklynn Tyson Mother Mariann Bustamante Paternal Grandfather Chucho Bustamante Paternal Grandmother Sophia Manleystenschlaallyson Bustamante Sister 1 Antoni Myersde Sister 2 Sister 3 Smiley Bustamante Giovanna Sister 4 Felisa Gravesliormiguel Brimer Social History Tobacco Use Types Packs/Day Years Used Date Smoking Tobacco: Former Cigarettes Smokeless Tobacco: Never Comments Unknown Sex and Gender Information Value Date Recorded Sex Assigned at Not on file Legal Sex Female 9:57 PM LUNG PULLER Gender Identity Female 01/30/2021 12:12 PM CDT Sexual Orientation Straight 09/06/2021 12 :28 PM CDT Obstetrics History Last Filed Vital Signs Vital Sign Reading Time Taken Comments Blood Pressure 132/74 09/12/2021 11:25 AM CDT Pulse 63 09/12/2021 11:25 AM CDT Temperature 36 C (96.8 F) 02/13/2021 2:51 PM CDT Respiratory Rate 15 04/23/2021 10:26 AM LUNG PULLER Oxygen Saturation 97% 09/12/2021 11:25 AM CDT Inhaled Oxygen Concentration - - Weight 93 kg (205 lb) 09/12/2021 11:25 AM CDT Height 160 cm (5' 3) 09/12/2021 11:25 AM CDT Body Mass Index 36.31 09/12/2021 11:25 AM CDT Plan of Treatment Not on file Insurance [facility] [employer]HC MEDICARE ADVANTAGE [facility] Advance Directives For more information, please contact: [phone] Documents on File Type Date Recorded Patient Business Trainer Expl anation ADVANCE DIRECTIVE 08/26/2017 12:00 AM Care Teams Professor Of Medicine Relationship Specialty Start Date End Date Tianna Peres MD [address] [place] [address] PCP - General 10/01/16
--- OUTSIDE RECORDS SUMMARY | 2024-11-08 15:16 | XMS_ITS | Referral Summary ---
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/19/2010 Social History Tobacco Use Types Packs/Day Years Used Date Smoking Tobacco: Former Cigarettes Smokeless Tobacco: Never Comments Unknown Sex and Gender Information Value Date Recorded Sex Assigned at Not on file Legal Sex Female 9:57 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 Gender Identity Female 01/30/2021 12:12 PM CDT Sexual Orientation Straight 09/06/2021 12 :28 PM CDT Last Filed Vital Signs Vital Sign Reading Time Taken Comments Blood Pressure 132/74 09/12/2021 11:25 AM CDT Pulse 63 09/12/2021 11:25 AM CDT Temperature 36 C (96.8 F) 02/13/2021 2:51 PM CDT Respiratory Rate 15 04/23/2021 10:26 AM RESAW CARRIAGE OPERATOR Oxygen Saturation 97% 09/12/2021 11:25 AM CDT Inhaled Oxygen Concentration - - Weight 93 kg (205 lb) 09/12/2021 11:25 AM CDT Height 160 cm (5' 3) 09/12/2021 11:25 AM CDT Body Mass Index 36.31 09/12/2021 11:25 AM CDT Plan of Treatment Not on file Insurance [facility] Address: [facility] [address] [place] [address] [facility] MEDIC[facility] ADVANTAGE [facility] Advance Directives For more information, please contact: [phone] Documents on File Type Date Recorded Patient Assistant Account Executive Expl anation ADVANCE DIRECTIVE 08/26/2017 12:00 AM Care Teams Railway Engineer Relationship Specialty Start Date End Date Tianna Peres MD [address] [place] [address] PCP - General 10/01/16
[2024-11-08 15:29] LABS: Creatinine Urine 51.5 mg/dL; Total Protein Urine Random 29 mg/dL; Ur Ttl Prot Creatinine Ratio 0.56 mg/mg (0-0.20)
[2024-11-08 15:40] LABS: Anion Gap 8 mmol/L (4-12); Blood Urea Nitrogen 35 mg/dL (7-17); Calcium 9.3 mg/dL (8.4-10.2); Carbon Dioxide 22 mmol/L (22-30); Chloride 110 mmol/L (98-107); Estimated Glomerular Filt Rate 33; Glucose 91 mg/dL (65-110); Osmolality Calculated 298 mOsm/kg (285-295); Phosphorus 4.7 mg/dL (2.5-4.5); Potassium 4.7 mmol/L (3.4-5.0); Sodium 140 mmol/L (137-145)
[2024-11-09 09:00] LABS: Creatinine, Random Urine 51 mg/dL (20-275); Total Protein/Creatinine Ratio 490 mg/g creat (24-184)
[2024-11-09 13:43] LABS: Complement C3 159 mg/dL (83-193)
[2024-11-10 03:04] LABS: Protein, Total 7.1 g/dL (6.1-8.1)
[2024-11-11 11:38] LABS: Albumin 3.7 g/dL (3.8-4.8); Alpha 1 Globulin 0.4 g/dL (0.2-0.3); Beta 1 Globulin 0.5 g/dL (0.4-0.6)
[2024-11-11 13:58] LABS: Anti Glomerular Basement Memb <1.0 AI
[2024-11-12 17:24] LABS: ANCA Screen NEGATIVE (NEGATIVE)
== END 2024-11-08 14:58 | disposition home or self-care (01) ==
LOC: CHSLAB 14:58
PROVIDERS: PCP Internal Medicine; Visit Provider Internal Medicine Nephrology
DX: N18.32 Chronic kidney disease, stage 3b (principal); E11.9 Type 2 diabetes mellitus without complications; N17.9 Acute kidney failure, unspecified
CPT/HCPCS: 36415; 80069; 82570; 83520; 84155; 84156; 84165; 84166; 86036; 86038; 86039; 86160; 86225

== ENCOUNTER 2025-04-11 20:50 | Emergency (ER) | payer MEDICARE, SELFPAY ==
--- NOTE | ~2025-04-11 | XR_ITS ---
XR hip RT 2V w AP pelvis HISTORY: fall . COMPARISON: 224 FINDINGS: Two views of the right hip are provided for interpretation. There is no evidence of fracture or dislocation. Interval sclerosis and flattening right femoral head. There is also sclerosis of the acetabulum. There is joint space narrowing. IMPRESSION: Radiographic examination of the right hip demonstrates no acute fracture or dislocation. Interval collapse of the right femoral head with sclerosis involving the head and the acetabulum. 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 Reviewed, dictated and finalized at location S. SFER PROFESSOR IMPRESSION: Radiographic examination of the right hip demonstrates no acute fracture or dis location. Interval collapse of the right femoral head with sclerosis involving the head a nd the acetabulum. 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
--- NOTE | ~2025-04-11 | XR_ITS ---
XR chest 1V portable INDICATION:PREOP . REFERENCE: None FINDINGS: A single AP of the chest demonstrates normal heart size. The lungs are clear. There is no evidence of pneumothorax or pleural effusion. IMPRESSION: No acute pulmonary findings. Reviewed, dictated and finalized at location S. R ORIGINATOR
--- NOTE | ~2025-04-11 | XR_ITS ---
XR knee LT 3V INDICATION: fall . COMPARISON: None. FINDINGS: Frontal, lateral and oblique views of the left knee demonstrate acute displaced comminuted fracture of the distal femoral diaphysis extending into the femoral condyles. There is no dislocation. There is no joint effusion. IMPRESSION: Acute comminuted displaced fracture of the distal femur. Reviewed, dictated and finalized at location S. TER APPRENTICE
--- NOTE | ~2025-04-11 | XR_ITS ---
XR hip LT min 2V HISTORY: FALL . COMPARISON: None FINDINGS: Two views of the left hip are provided for interpretation. Hip arthroplasty is noted. Components are well-seated. There are no acute fracture or dislocation. IMPRESSION: Radiographic examination of the left hip demonstrates no acute fracture or dislocation. Reviewed, dictated and finalized at location S. ER NARROW FABRICS IMPRESSION: Radiographic examination of the left hip demonstrates no acute fracture or disl ocation.
--- OUTSIDE RECORDS SUMMARY | 2025-04-11 20:53 | XMS_ITS | Clinical Summary ---
Author Organization [facility] Address [address] [place] [address] Care Team Providers Care Cord Cutter Name Role Phone Tianna Peres MD Primary Care Provider [phone] Allergies Active Allergy Reactions Criticality Noted Date Comments Amlodipine Swelling 11/17/2015 Sulfa Antibiotics Rash Low 12/25/2018 Tetracycline Hives Medium 12/25/2018 Medications metFORMIN 500 MG tablet Take 500 mg by mouth daily with breakfast. Active allopurinol 100 MG tablet Take 100 mg by mouth 2 (two) times daily. Active colchicine 0.6 MG tablet Take 0.6 mg by mouth daily. Active B ipbhycs-R-xsjyr acid 0.8 mg Tab tablet Take 1 tablet by mouth daily. Active probiotic capsule Take 1 capsule by mouth 2 (two) times daily with meals. Active aspirin 81 MG chewable tablet Chew 81 mg by mouth daily. Active Nebivolol HCl (BYSTOLIC) 20 MG Tab Take 1 tablet by mouth daily. Active levothyroxine 50 MCG tablet Take 50 mcg by mouth every morning. Active venlafaxine 75 MG tablet Take 75 mg by mouth daily. Active Cholecalciferol (VITAMIN D3) 2000 units Tab Take 1 tablet by mouth daily. Active traMADol 50 MG tablet Take 50 mg by mouth every 6 (six) hours as needed for Pain. Active acetaminophen 325 MG tablet Take 650 mg by mouth every 6 (six) hours as needed for Pain. Active EPINEPHrine 0.3 MG/0.3ML injection Inject 0.3 mg into the muscle as needed. 06/22/2020 Active Olmesartan Medoxomil 40 MG Tab Take 40 mg by mouth daily. 10/24/2020 Active hydroxychloroqu ine (PLAQUENIL) 200 MG tablet Take 200 mg by mouth 2 (two) times daily. Active pravastatin 20 MG tablet Take 10 mg by mouth every other day. 08/29/2020 Active Boswellia-Gluco samine-Vit D (OSTEO NO-VSEV-FJOIUT/ 5-LOXIN) Tab Take 2 tablets by mouth daily. Active Active Problems Problem Noted Date Diagnosed Date Periprosthetic fracture of mono rodrigez following total replacement of hip, subsequent encounter 12/25/2018 Aftercare following left hip joint replacement s urgery 11/26/2018 Family History Medical History Relation Comments Heart Disease Brother Sudden Father gastric ulcers Father Diabetes Mother Stroke Mother Kidney Disease Sister 1 Hypertension Sister 2 Multiple Sclerosis Sister 2 Diabetes Sister 3 Hypertension Sister 3 Relation Status Comments Brother Alive Father Mother Sister 1 Sister 2 Alive Sister 3 Alive Social History Tobacco Use Types Packs/Day Years Used Date Smoking Tobacco: Former Cigarettes 0.3 0.5 0 12/1978 - 1979 Smokeless Tobacco: Never Alcohol Use Standard Drinks/Week Comments Yes 0 (1 standard drink = 0.6 oz pur e alcohol) Seldom Comments Unknown Sex and Gender Information Value Date Recorded Sex Assigned at Not on file Legal Sex Female 10:26 PM CDT Gender Identity Not on file Sexual Orientation Not on file Last Filed Vital Signs Vital Sign Reading Time Taken Comments Blood Pressure 128/88 12/23/2013 12:12 PM CDT Pulse 62 12/23/2013 12:11 PM CDT Temperature 36.5 C (97.7 F) 12/23/2013 12:11 PM CDT Respiratory Rate 16 12/23/2013 12:11 PM CDT Oxygen Saturation - - Inhaled Oxygen Concentration - - Weight 96.2 kg (212 lb) 11/02/2020 3:22 PM CDT Height 167.6 cm (5' 6) 11/02/2020 3:22 PM CDT Body Mass Index 34.22 11/02/2020 3:22 PM CDT Plan of Treatment Health Maintenance Due Date Last Done Comments Hepatitis C 1963 DTaP, Tdap and Td Vaccines ( 1 - Tdap) 1965 Zoster Vaccines (1 of 2) 1996 Annual Medicare Wellness Visit 10/11/2011 Dexa Scan (General) 10/11/2011 Pneumococcal Vaccine: 50+ Years (2 of 2 - PCV20 or PCV21) 09/17/2016 09/18/2015 RSV Immunization or 60+ Years (1 - 1-dose 75+ series) 2021 COVID-19 Vaccine (3 - 2024-2 6 season) 2025 08/01/2020, 07/11/2020 Influenza Adult (#1) 2025 05/24/2013 Hepatitis A Vaccines Aged Out No long er eligible based on patient's age to complete this topic Meningococcal B Vaccine Aged Out No l onger eligible based on patient's age to complete this topic Meningococcal Vaccine Aged Out No tim allyson eligible based on patient's age to complete this topic RSV Immunizations Under 20 Months Aged Out No longer eligible b ased on patient's age to complete this topic Insurance MED [facility] MEDICARE Care Teams Cord Cutter Relationship Specialty Start Date End Date Tianna Peres MD [address] [place] [address] PCP - General INTERNAL MEDICINE 11/02/20
--- OUTSIDE RECORDS SUMMARY | 2025-04-11 20:53 | XMS_ITS | Encounter Summary ---
Author Organization [facility] Address [address] [place] [address] Care Team Providers Care Remote Sensing Engineer Name Role Phone Tianna Peres MD Primary Care Provider [phone] New Referring, Provider Primary Care Provider Un available Tianna Peres MD Unavailable [phone] Tianna Peres MD Primary Care Provider [phone] Encounter Details Date Type Department Care Team (Late st Contact Info) Description 11/14/2018 Abstract [facility] CONVERSION [address] [place] [address] , Generic Conversion, Social History Tobacco Use Types Packs/Day Years Used Date Smoking Tobacco: Former Comments Unknown Sex and Gender Information Value Date Recorded Sex Assigned at Not on file Legal Sex Female 10:26 PM CDT Gender Identity Not on file Sexual Orientation Not on file documented as of this encounter Plan of Treatment Not on file documented as of this encounter Visit Diagnoses Not on filedocumented in this encounter Care Teams Remote Sensing Engineer Relationship Specialty Start Date End Date Tianna Peres MD [address] [place] [address] PCP - General INTERNAL MEDICINE 11/24/18 11/25/18 New Referring, Provider [address] [place] [address] PCP - General UNKNOWN PHYSICIAN SPECIALTY 11/26/18 11/01/20 Tianna Peres MD [address] [place] [address] PCP - General INTERNAL MEDICINE 11/02/20 Tianna Peres MD [address] [place] [id number] INTERNAL MEDICINE 11/26/18 11/01/20 documented as of this encounter
--- OUTSIDE RECORDS SUMMARY | 2025-04-11 20:53 | XMS_ITS | Encounter Summary ---
Author Organization [facility] Address [address] [place] [address] Care Team Providers Care Laborer Wood Preserving Plant Name Role Phone Tianna Peres MD Primary Care Provider [phone] New Referring, Provider Primary Care Provider Un available Tianna Peres MD Unavailable [phone] Tianna Peres MD Primary Care Provider [phone] Encounter Details Date Type Department Care Team (Late st Contact Info) Description 08/23/2017 Abstract [facility] CONVERSION [address] [place] [address] , Generic Conversion, Social History Tobacco Use [...] on filedocumented in this encounter Care Teams Laborer Wood Preserving Plant Relationship Specialty Start Date End Date Tianna Peres MD [address] [place] [address] PCP - General INTERNAL MEDICINE 11/24/18 11/25/18 New Referring, Provider [address] [place] [address] PCP - General UNKNOWN PHYSICIAN SPECIALTY 11/26/18 11/01/20 Tianna Peres MD [address] [place] [address] PCP - General INTERNAL MEDICINE 11/02/20 Tianna Peres MD [address] [place] [id number] INTERNAL MEDICINE 11/26/18 11/01/20 documented as of this encounter
--- OUTSIDE RECORDS SUMMARY | 2025-04-11 20:53 | XMS_ITS | Clinical Summary ---
Author Organization [facility] Address [address] [place] [address] Care Team Providers Care Trailhead Maintenance Worker Name Role Phone Tianna Peres MD Primary Care Provider [phone] Allergies Active Allergy Reactions Criticality Noted Date [...] 08/18 Arthralgia of hip 10/14/2016 Polyarthropathy 11/19/2010 Surgical History Surgery Date Site/Laterality Comments [place] CHOLECYSTECTOMY Cholecystectomy - (Added by TW Conv) [...] d by TW Conv) Hypertension Diabetes mellitus Arthritis Depression Sleep apnea 2007 Family History Medical History Relation Name Comments Early Brother Atif Bustamante Hypertension Brother Atif Bustamante Hypertension - (Added by TW Conv) Early Father's Brother Marko Bustamante Memory loss Maternal Grandmother Buchanan Toigo Obesity Maternal Grandmother Brooklynn Toigo Stroke Maternal Grandmother Buchanan Toigo Diabetes Mother Mariann Toigo Vezzoli Diabetes Mellitus - (Added by TW Conv) Diabetes type II Mother Mariann Toigo Vezzoli Type 2 Diabetes Mellitus - (Added by TW Conv) Hypertension Mother Mariann Toigo Vezzoli Hypertens ion - (Added by TW Conv) Obesity Mother Mariann Toigo Vezzoli Osteoarthritis Mother Mariann Toigo Vezzoli Osteoar thritis - (Added by TW Conv) Stroke Mother Mariann Toigo Vezzoli Vision loss Paternal Grandfather Chucho Bustamante Early Paternal Grandmother Sophia Wise nschlager Vezzoli Hypertension Sister 1 Antoni Sullivan Kidney disease Sister 1 Antoni Sullivan End Stage Renal Disease - (Added by TW Conv) Hypertension Sister 2 Hypertension - (Added by TW Conv) Hypertension Sister 3 Smiley Heredia Multiple sclerosis Sister 3 Smiley Heredia Mu ltiple Sclerosis - (Added by TW Conv) Cancer Sister 4 Felisa Bustamante Brimer Relation Name Status Comments Brother Atif Bustamante Father's Brother Marko Bustamante Maternal Grandmother Brooklynn Tyson Mother Mariann Bustamante Paternal Grandfather Chucho Bustamante Paternal Grandmother Sophia Segundoschjennifer Bustamante Sister 1 Antoni Myersde Sister 2 Sister 3 Smiley Heredia Sister 4 Felisa Bustamante Brseamus Social History Tobacco Use Types Packs/Day Years Used Date Smoking Tobacco: Former Cigarettes Smokeless Tobacco: Never Comments Unknown Sex and Gender Information Value Date Recorded Sex Assigned at Not on file Legal Sex Female 9:57 PM SOURCING SPECIALIST Gender Identity Female 01/30/2021 12:12 PM CDT Sexual Orientation Straight 09/06/2021 12 :28 PM CDT Last Filed Vital Signs Vital Sign Reading Time Taken Comments Blood Pressure 132/74 09/12/2021 11:25 AM CDT Pulse 63 09/12/2021 11:25 AM CDT Temperature 36 C (96.8 F) 02/13/2021 2:51 PM CDT Respiratory Rate 15 04/23/2021 10:26 AM SOURCING SPECIALIST Oxygen Saturation 97% 09/12/2021 11:25 AM CDT Inhaled Oxygen Concentration - - Weight 93 kg (205 lb) 09/12/2021 11:25 AM CDT Height 160 cm (5' 3) 09/12/2021 11:25 AM CDT Body Mass Index 36.31 09/12/2021 11:25 AM CDT Plan of Treatment Not on file Insurance [employer] MEDICARE UHC MEDICARE ADVANTAGE [facility] MEDICARE Advance Directives For more information, please contact: [phone] Documents on File Type Date Recorded 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
--- OUTSIDE RECORDS SUMMARY | 2025-04-11 20:53 | XMS_ITS | Patient Health Record ---
Author Organization [facility] Address [address] [place], [place] [id number] Care Team Providers Care Oil Well Service Operator Name Role Phone JORDYN Murray Unavailable [phone] Tianna Peres Unavailable Unavailable Reason For Referral No Information Social History Social History Additional Details Category Social Info Options Details Migrated Social History Migrated Social History Alcohol intake : , History of tobacco use : , Smoking Status : Never smoked Plan Of Treatment No Information Insurance Providers Payer Name Payer Address Payer Phone Subscriber Number Group Number Insured Name Patient Relationship to Insured Coverage Start Date Coverage End Date [facility] [address] [address] [place] [address] [id number] DINESH PEREZ Self - patient is the insured
--- NOTE | 2025-04-11 21:00 | ED.LOWEXIN ---
HPI - Extremity Injury (Lower) General Chief Complaint: Extremity Injury, Lower Stated Complaint: left knee and leg Time Seen by Provider: 04/11/25 20:53 Source: patient and EMS Mode of arrival: EMS Limitations: no limitations History of Present Illness HPI Narrative: 79 years old white female came from home by ambulance with pain at the left knee. Patient was tried to stand, lost balance, twisted left knee and fell to the ground. Had chronic right hip pain, probably worse today than usual. She denies other injuries. Patient on baby aspirin once a day. Patient denies any fever, chills, nausea, vomiting, diarrhea, constipation, chest pain, shortness of breath, abdominal pain, head pain or neck pain. Related Data Home Medications ?Medication ?Instructions ?Recorded ?Confirmed ?Last Taken ?Type Lactobacil.acidophilus-Bifido.animalis 2 cap PO DAILY 12/22/20 02/19/25 08/08/21 History 5 billion cell sprinkle capsule (Probiotic) allopurinol 100 mg tablet 100 mg PO BID 12/22/20 02/19/25 Unknown History cetirizine 10 mg tablet (Zyrtec) 10 mg PO BID 12/22/20 02/19/25 Unknown History epinephrine 0.3 mg/0.3 mL 0.3 mg subcut PRN PRN HIVES 12/22/20 02/19/25 Unknown History injection, auto-injector levothyroxine 50 mcg tablet 50 mcg PO QAM 12/22/20 02/19/25 08/15/21 08:00 History multivitamin 2 tablet PO DAILY 12/22/20 02/19/25 08/08/21 History nebivolol 20 mg tablet (Bystolic) 20 mg PO QAM 12/22/20 02/19/25 08/15/21 08:00 History olmesartan 40 mg tablet 40 mg PO QAM 12/22/20 02/19/25 Unknown History pravastatin 20 mg tablet 10 mg PO EVERY OTHER DAY 12/22/20 02/19/25 Unknown History aspirin 81 mg tablet,delayed 81 mg PO DAILY 04/28/24 02/19/25 Unknown History release (Adult Low Dose Aspirin) cholecalciferol (vitamin D3) 50 50 mcg PO DAILY 04/28/24 02/19/25 Unknown History mcg (2,000 unit) capsule fluticasone propionate 50 1 spray intranasal DAILY 04/28/24 02/19/25 Unknown History mcg/actuation nasal spray,suspension hydroxychloroquine 200 mg tablet 200 mg PO BID 04/28/24 02/19/25 Unknown History (Plaquenil) venlafaxine 75 mg capsule,extended 75 mg PO DAILY 04/28/24 02/19/25 Unknown History release 24 hr diclofenac sodium 1 % topical gel 2 g topical QID 08/18/24 02/19/25 Unknown History (Voltaren Arthritis Pain) acetaminophen 500 mg tablet 500 mg PO Q6HR 11/17/24 02/19/25 Unknown History gabapentin 100 mg capsule 100 mg PO TID 11/17/24 02/19/25 Unknown History glucosamine-chondroitin 250 mg-200 2 tablet PO ONCE 12/14/24 02/19/25 Unknown History mg tablet (Osteo Bi-Flex) Allergies Allergy/AdvReac Type Severity Reaction Status Date / Time metformin Allergy Unknown Unknown Verified 04/11/25 21:05 Sulfa (Sulfonamide Allergy Rash Verified 04/11/25 21:05 Antibiotics) Tetracyclines Allergy Hives Verified 04/11/25 21:05 Review of Systems Review of Systems: All systems reviewed & are unremarkable except as noted in HPI and below PMFSH Past Medical History Medical History Kidney dysfunction Obesity Depression Anxiety Arthritis Hypothyroidism Diabetes type 2, controlled Bronchitis frequent GERD (gastroesophageal reflux disease) BRIJESH (obstructive sleep apnea) CPAP Hyperlipidemia Hypertension History of subdural hematoma Angelito hole in , no residual Surgical History Surgical History History of left hip replacement History of right knee joint replacement History of shoulder surgery History of cholecystectomy History of appendectomy Family History Family History Father , MVC No problems noted. Mother Heart disease Cerebrovascular accident Sibling Brain cancer CKD (chronic kidney disease) Sibling Multiple sclerosis Other Diabetes mellitus Social History Social History Smoking status: Former smoker Second hand tobacco smoke exposure: No Additional smoking assessment comments: STATES SMOKED SOCIALLY IN COLLEGE <1Y Alcohol intake: current Alcohol use details: occasional Substance use: never Substance use type: does not use Current Housing: Decline to Answer Concerned About Future Housing: Decline to Answer Difficulty Paying Gas/Electric Bills: Decline to Answer Difficulty Paying for Meds: Decline to Answer Currently Unemployed: Decline to Answer Education: Decline to Answer Living arrangements: with family Additional living arrangements comments: Occupation/Education: retired 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 Gender identity (if verbalized by the patient): Female Spiritual care concerns: No Exam Narrative: General appearance: Well-developed, well-nourished Skin: Normal color Head: Normocephalic, nontraumatic Eyes: Clear conjunctiva ENT: Oropharynx normal, ears normal, nose normal Neck: Supple, nontender Chest and respiratory: Airway patent, no respiratory distress, no accessory muscle use Heart: Regular rate/rhythm Abdomen: Soft, nontender, no organomegaly, quiet bowel sounds Vascular: Normal peripheral pulses, normal capillary refill. Musculoskeletal: Limited range of motion of the right hip, no bruises, no swelling, no deformity, left knee exam showed diffuse tenderness, diffusely deformity, no bruises, severe limited range of motion Neurologic: Alert and oriented ?3, WINDOWS SERVER SUPPORT TECHNICIAN is normal as tested, no gross motor deficit Course Consultations Consultation #1: DR APPLE, ORTHOPEDIC AT [facility] Date: 04/11/25 Time: 21:39 Consultation #2: DR OLIVIA, ED [facility] ACCEPTED PATIENT TRANSFER Date: 04/11/25 Time: 21:52 Vital Signs Vital signs: Vital Signs Temperature 36.3 C L 04/11/25 21:05 Pulse Rate 66 04/11/25 21:05 Respiratory Rate 20 04/11/25 21:05 Blood Pressure 128/62 04/11/25 21:05 Pulse Oximetry 99 04/11/25 21:05 Oxygen Delivery Room Air 04/11/25 21:05 Temperature 36.3 C L 04/11/25 21:05 Pulse Rate 66 04/11/25 21:05 Respiratory Rate 20 04/11/25 21:05 Blood Pressure 128/62 04/11/25 21:05 Pulse Oximetry 99 04/11/25 21:05 Oxygen Delivery Room Air 04/11/25 21:05 MDM - Extremity Injury (Lower) MDM Narrative Medical decision making narrative: Patient presents with pain left knee and right hip status post fall today. She denies other injury X-ray of the right hip showed NO ACUTE ABNORMALITY X-ray of the left knee showed LEFT FEMUR IN FRACTURE TRANSFERRED TO [facility], ACCEPTED BY THE ED PHYSICIAN DR. OLIVIA. Differential Diagnosis Differential diagnosis: Likely acute internal derangement of knee, fracture of femur and fracture of hip Lab Data 04/11/25 21:39 04/11/25 21:39 Labs: Lab Results 04/11/25 Range/Units 21:39 WBC 13.5 H (4.8-10.8) K/mm3 RBC 2.99 L (4.20-5.40) M/mm3 Hgb 9.2 L (11.7-13.8) g/dL Hct 29.0 L (35.0-42.0) % MCV 97.0 (78.0-102.0) fL MCH 30.8 (27.0-31.0) pg MCHC 31.7 L (32-36) g/dL RDW 14.6 H (11.6-14.4) % Plt Count 230 (150-420) K/mm3 MPV 9.8 (9.2-11.8) fl Immature Gran % (Auto) 0.5 H (0.0-0.0) % Neut % (Auto) 85.4 H (50.0-70.0) % Lymph % (Auto) 7.5 L (18.0-42.0) % Mayes % (Auto) 5.1 (2.0-11.0) % Eos % (Auto) 1.1 (1.0-6.0) % Baso % (Auto) 0.4 (0.0-1.0) % Lymph # (Auto) 1.01 L (1.10-4.50) K/mm3 Mayes # (Auto) 0.69 (0.10-0.90) K/mm3 Eos # (Auto) 0.15 (0.02-0.50) K/mm3 Baso # (Auto) 0.06 (0.00-0.10) K/mm3 Abs Immat Gran (auto) 0.07 H (0.00-0.00) K/mm3 Absolute Neuts (auto) 11.47 H (1.70-7.20) K/mm3 Absolute Nucleated RBC 0.00 (0.00-0.00) K/mm3 Nucleated RBC % 0.0 (0-0.0) % PT Pending INR Pending APTT Pending Sodium Pending Potassium Pending Chloride Pending Carbon Dioxide Pending Anion Gap Pending BUN Pending Creatinine Pending Estim Creat Clear Calc Pending Estimated GFR Pending Glucose Pending Calculated Osmolality Pending Calcium Pending Total Bilirubin Pending AST Pending ALT Pending Alkaline Phosphatase Pending Total Protein Pending Albumin Pending Imaging Data Radiologist's impression: Impressions Chest X-Ray 04/11/25 21:31 IMPRESSION: No acute pulmonary findings. Hip X-Ray 04/11/25 21:32 IMPRESSION: Radiographic examination of the left hip demonstrates no acute fracture or dislocation. Hip/Pelvis X-Ray 04/11/25 21:35 IMPRESSION: Radiographic examination of the right hip demonstrates no acute fracture or dislocation. Interval collapse of the right femoral head with sclerosis involving the head and the acetabulum. 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 Knee X-Ray 04/11/25 21:37 IMPRESSION: Acute comminuted displaced fracture of the distal femur. Critical Care Time Critical Care Time Critical Care Time: No Discharge Plan Discharge Clinical Impression: Closed left femoral fracture Patient Disposition: Acute Care Hospital [facility] Condition: Stable Additional Instructions: TRANSFERRED TO [facility] Patient Language: Slovak Prescriptions: No Action aspirin [Adult Low Dose Aspirin] 81 mg tablet,delayed release (DR/EC) 81 mg PO DAILY hydroxychloroquine [Plaquenil] 200 mg tablet 200 mg PO BID venlafaxine 75 mg capsule,extended release 24hr 75 mg PO DAILY fluticasone propionate 50 mcg/actuation spray,suspension 1 spray intranasal DAILY Rx Instructions: administer into each nostril cholecalciferol (vitamin D3) 50 mcg (2,000 unit) capsule 50 mcg PO DAILY diclofenac sodium [Voltaren Arthritis Pain] 1 % gel 2 g topical QID Rx Instructions: apply to single elbow, wrist or hand; for hand includes palm/fingers/back of hand gabapentin 100 mg capsule 100 mg PO TID glucosamine-chondroitin [Osteo Bi-Flex] 250-200 mg tablet 2 tablet PO ONCE Rx Instructions: give after food/meal acetaminophen 500 mg tablet 500 mg PO Q6HR multivitamin Tablet 2 tablet PO DAILY cetirizine [Zyrtec] 10 mg Tablet 10 mg PO BID allopurinol 100 mg Tablet 100 mg PO BID levothyroxine 50 mcg tablet 50 mcg PO QAM pravastatin 20 mg tablet 10 mg PO EVERY OTHER DAY olmesartan 40 mg tablet 40 mg PO QAM nebivolol [Bystolic] 20 mg tablet 20 mg PO QAM Probiotic 5 billion cell Capsule, Sprinkle 2 cap PO DAILY epinephrine 0.3 mg/0.3 mL auto-injector 0.3 mg subcut PRN PRN (Reason: HIVES) Follow-up/Referrals: Tianna Peres MD [Primary Care Provider, Internal Medicine]
[2025-04-11 21:05] VITALS: BP 128/62; PULSE 66; RESP 20; TEMP 36.3; O2SAT 99
--- NOTE | 2025-04-11 21:20 | ECG_ITS ---
Test Date: 2025-04-11 21:50:28 Measurements Intervals Raymond Rate: 64 P: 64 CT: 172 QRS: -1 QRSD: 94 T: 16 QT: 379 QTc: 393 Interpretive Statements SINUS RHYTHM POSSIBLE LEFT VENTRICULAR HYPERTROPHY [VOLTAGE CRITERIA PLUS LAE OR QRS WIDENING] No previous ECG available for comparison Electronically Signed On 04-12-2025 06:40:54 COMMERCIAL LENDER by Jorge Dickey M.D.
--- OUTSIDE RECORDS SUMMARY | 2025-04-11 21:33 | XMS_ITS | Clinical Summary ---
Author Organization [facility] Address [address] [place] [address] Care Team Providers Care Social Psychologist Name Role Phone Tianna Peres MD Primary Care Provider + [phone] Allergies Active Allergy Reactions Criticality Noted Date [...] 11/19/2010 Surgical History Surgery Date Site/Laterality Comments [place] CHOLECYSTECTOMY Cholecystectomy - (Added by TW Conv) [...] by TW Conv) Early Father's Brother Marko Bustamanet Memory loss Maternal Grandmother Menard Toigo Obesity Maternal Grandmother Brooklynn Toigo Stroke Maternal Grandmother Menard Toigo Diabetes Mother Mariann Toigo Vezzoli Diabetes [...] on file Legal Sex Female 9:57 PM DIALER Gender Identity Female 01/30/2021 12:12 PM CDT Sexual Orientation Straight 09/06/2021 12 :28 PM CDT Last Filed Vital Signs Vital Sign Reading Time Taken Comments Blood Pressure 132/74 09/12/2021 11:25 AM CDT Pulse 63 09/12/2021 11:25 AM CDT Temperature 36 C (96.8 F) 02/13/2021 2:51 PM CDT Respiratory Rate 15 04/23/2021 10:26 AM DIALER Oxygen Saturation 97% 09/12/2021 11:25 AM CDT Inhaled Oxygen Concentration - - Weight 93 kg (205 lb) 09/12/2021 11:25 AM CDT Height 160 cm (5' 3) 09/12/2021 11:25 AM CDT Body Mass Index 36.31 09/12/2021 11:25 AM CDT Plan of Treatment Not on file Insurance AETNA MEDICARE UHC MEDICARE ADVANTAGE [facility] MEDICARE Advance Directives For more information, please contact: [phone] Documents on File Type Date Recorded 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
--- OUTSIDE RECORDS SUMMARY | 2025-04-11 21:33 | XMS_ITS | Data Portability ---
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 She is here as a 1 year follow-up of right total knee arthroplasty but also for symptoms of the left knee. The right knee is doing very well. She is having very mild soreness in it especially on days when she is on it more. She has a lot more symptoms in the left knee on a regular basis. She takes Plaquenil on a daily basis which helps. She did want to have a cortisone injection in the left knee today. She is not ready to discuss surgery on the left knee. Physical exam: Her right knee shows a well-healed incision. No effusion. Range motion is from 0-115 degrees. Excellent stability in both flexion extension. Her left knee shows a lkyx-ma-twoqflkk effusion. Range of motion is from 5-135 degrees. Moderate tenderness over the medial joint line to palpation. Hip range of motion is full without discomfort bilaterally. There is no edema on lower extremity. ChloraPrep was used on skin 20 mg Kenalog and 3 cc of 0.5% ropivacaine was injected into the left knee. Risk of infection discussed. Impression: Patient is 1 year out from right total knee arthroplasty with constrained components. X-rays are excellent. Patient is happy with her results. We can see her back in 5 years for routine x-ray surveillance or sooner if she has problems. Long-term risk of infection was discussed. Patient has severe medial compartment osteoarthritis of the left knee. Discussed treatment options including cortisone injection is often as every 3 months and she would like to come back in 3 months repeat injection. At some point she may require surgical intervention on the knee she is hoping to put this off as long as possible. 20 minutes was spent in treatment the patient more than half of this [id number] conversation Not available 09/11/2022 16:24:02 12/20/2022 12/20/2022 HPI: Patient returns. She is here for cortisone injection left knee. She has severe medial compartment osteoarthritis. Shot 3 months ago worked well and she wished to continue with these. Physical exam: 77-year-old female alert. She has a mild effusion left knee. Range of motion is from 3-130 degrees. Nhdm-tq-rxdjepfa tenderness over the medial joint line to palpation. No increased swelling in either lower extremity. After ChloraPrep was used on skin 20 mg Kenalog and 3 cc of 0.5% ropivacaine was injected into the left knee. Risk of infection discussed. Impression: 77-year-old female who has severe medial compartment osteoarthritis in the left knee. She continues to get good relief from the injections. I will see her back in 3 months. Not available 12/20/2022 15:41:43 03/28/2023 03/28/2023 HPI: Patient returns. It has been 3 months since last cortisone injection into the left knee. She has severe medial compartment osteoarthritis. We did her right knee replacement in the past. She has been having some soreness in the knee on the right as well some soreness in the right lateral hip. She has been limping due to pain in the left knee. I think this is probably overload on the knee replacement in the hip causing some irritability. She is not able take anti-inflammatori es. There is a strong family history of kidney disease and she avoids taking anti-inflammatori es. She wished to have another injection in the left knee today. Physical exam: 77-year-old female she is 5 ft 4 and 225 lb BMI is 38.6. She has mild effusion left knee. Range of motion left knee is from 12-125 degrees. There is trace edema both lower extremities. She walks with significant start-up limp and mild limp when she is ambulating. She has mild tenderness over medial joint line palpation. After ChloraPrep used on skin 20 mg Kenalog and 3 cc of 0.5% ropivacaine was injected into the left knee. Patient's right hip has good range of motion without discomfort. Wzpm-jp-sngaxdxd tenderness over the trochanteric bursa. Impression: 77 year female has severe medial compartment osteoarthritis in the left knee with continued symptoms. She may need to have the knee replaced to get adequate relief of her symptoms at this point. I think the pain in the right leg particularly in the knee in lateral hip is just from overload. I recommended she use a cane on a full-time basis in the right hand as this will take stress off left knee hopefully some stress off the right knee and right hip same time. We talked about formal therapy for hip and she would like to do this while give her script for that as well. Weight loss may be beneficial and she should work on reducing her intake and getting her weight down as this will also help with the stress on her knees and hips as well. I will see her in 3 months for re-evaluation. Not available 03/28/2023 15:02:38 07/21/2023 07/21/2023 HPI: Patient turns. She is here for cortisone injection into the left knee. Last shot was in March. She has severe medial compartment osteoarthritis. She is getting home most removed good relief. Patient was also complaining of pain in the right hip. She states that she recently had x-rays done of the hip and was told she has severe osteoarthritis in that hip. She has had her left hip replaced by a different surgeon 3 years ago. Uses a cane on a full-time basis. She does lose her balance at times and recently fell. She has quite a bit of ecchymosis to the right side of her face as well as the anterior aspects of both knees. She has had a right knee replaced by us in the past. This knee is doing well but does get sore at times. I discussed with her that it may be likely be from overload since she is limping because the left knee is so bad or could be referred from her right hip be arthritic. Physical exam 77-year-old female alert pleasant. She has a mild effusion in the left knee. Range of motion is from 7-130 degrees. Mild tenderness over the medial joint line to palpation. She has trace edema both lower extremities. After Betadine and alcohol swab 20 mg Kenalog and 3 cc of 0.5% ropivacaine was injected into the left knee. Impression: 77-year-old female who is severe medial compartment osteoarthritis in the left knee. She can repeat cortisone injections as often as every 3 months. She states that she has gained weight recently. Certainly this will contribute to her symptoms. I did give her our handout on weight loss. Last time she was weighed 1 year ago her BMI was 38 and again this is going to contribute to her symptoms. Also if she has gained more weight she is going to need to lose weight to make sure that her BMI is under 40 before surgical options whether it is the left knee or the right hip can be addressed. I also recommended that she may want to use a walker on a more regular basis since she has had several falls. I think the falls are due to the fact that she has band arthritic joints 1 opposite legs causing her to have a poor gait. At this point she will call when she feels she needs additional injection is needed in the knee. 20 minutes was spent in treatment patient with more than half of this in acol-jq-cvkl conversation [email or web address] Not available 07/21/2023 16:54:53 Plan of Treatment Reminders Order Date Submit Date Provider Last Modified By Organization Details Last Modified Time Details Appointments None recorded. Lab None recorded. Referral None recorded. Procedures injection/a spiration joint/bursa (PROC) - in office procedure, administere d by provider 2023 024 In-Office Order, Internal Use Only DO Not Attach Compendium DO Not Attach Compendium, Do Not Delete/merge, [id number] 4 16:09:03 injection/a spiration joint/bursa (PROC) - in office procedure, administere d by provider 2022 023 [email or web address] In-Office Order, Internal Use Only DO Not Attach Compendium DO Not Attach Compendium, Do Not Delete/merge, [id number] 3 14:36:16 injection/a spiration joint/bursa (PROC) - in office procedure, administere d by provider 2022 023 [email or web address] In-Office Order, Internal Use Only DO Not Attach Compendium DO Not Attach Compendium, Do Not Delete/merge, [id number] 3 14:05:35 injection/a spiration joint/bursa (PROC) - in office procedure, administere d by provider 2022 023 [email or web address] In-Office Order, Internal Use Only DO Not Attach Compendium DO Not Attach Compendium, Do Not Delete/merge, [id number] 3 15:22:04 Surgeries None recorded. Imaging XR, knee 2022 023 [email or web address] [facility] [place], [address], [place], [address], 3 17:04:47 Medication Orders Kenalog 10 mg/mL suspension for injection 2023 024 [email or web address] [facility] [place], [address], [place], [address], 4 18:52:07 ropivacaine (PF) 5 mg/mL (0.5 %) injection solution 2023 024 [email or web address] [facility] [place], [address], [place], [address], 4 18:52:07 Kenalog 10 mg/mL suspension for injection 2022 023 [email or web address] [facility] [place], [address], [place], [address], 4 16:06:47 ropivacaine (PF) 5 mg/mL (0.5 %) injection solution 2022 023 [facility] [place], [address], [place], [address], 3 15:53:58 Kenalog 10 mg/mL suspension for injection 2022 023 [email or web address] [facility], [address], [place], [address], 4 16:06:47 ropivacaine (PF) 5 mg/mL (0.5 %) injection solution 2022 023 [facility], [address], [place], [address], 3 15:20:01 Kenalog 10 mg/mL suspension for injection 2022 023 [email or web address] [facility], [address], [place], [address], 4 16:06:47 ropivacaine (PF) 5 mg/mL (0.5 %) injection solution 2022 023 [email or web address] [facility] [place], [address], [place], [address], 3 16:39:35 Patient TargetsNo targets recorded. Patient InstructionsNo instructions recorded. Reason for Referral None Reported. Results Created Date Observation Date Name Description Value Unit Range Abnormal Flag Note LastModifiedBy Organization Detail LastModifiedTime 10/13/19 22 XR, knee No observ ation record ed. [id number] [facility] [place] [address], [place], [address], 08/07/2022 22:06:06 09/12/19 23 XR, knee No observ ation record ed. [facility] [place] [address], [place], [address], 09/11/2022 16:21:52 07/11/19 24 07/11/2023 XR, hip + pelvi s, unila teral No observ ation record ed. [facility] [address], [place], [address], 07/11/2023 13:36:38 Result Notes None recorded. Problems Name Problem SNOMED Code Status Onset Date Resolution Date Notes Provider Name and Address Organization Details Recorded Time Osteoarthr itis 953102971 Active 2021 Not Available [facility] 3 22:05:20 Type 2 diabetes mellitus without complicati on 475190799 Active 2021 Not Available [facility] 3 22:05:20 Pain of bilateral knee joints 0948554052244 04 Active 2022 Maribel Diane RMA null, [place] [facility] 3 14:39:43 Pain of left knee joint 9713120016522 07 Active 2022 Traci Oshea [employer] null, [place] [facility] 3 14:00:37 Bilateral osteoarthr itis of knees 1819299316003 07 Active 2022 Maribel Diane RMA null, [place] [facility] 3 14:34:38 Osteoarthr itis of left knee joint 0515123293609 09 Active 2023 Maribel Diane RMA null, [place] [facility] 4 16:07:55 Problem Notes None recorded. Procedures Surgical History Date Name Laterality Status Provider Name and Address Organization Details Recorded Time open reduction of fracture of radius completed Not Available [facility] 08/07/2022 22:04:53 procedure on gallbladder completed Not Available [facility] 08/07/2022 22:04:53 Imaging Results None recorded. Procedure Notes None recorded. Medical Equipment None Reported. Allergies Allergen ID Allergen Name Allergen Category Reaction Reaction Severity Criticality Documentation Date Start Date Code Code System Note Provider Name and Address Organization Details Recorded Time 94116 tetracycl ine medicatio n Not available Not available Not available 08/07/2022 04942 RxNorm Not Available [facility] 3 22:06:02 16350 Substance with sulfonami de structure and antibacte rial mechanism of action (substanc e) medicatio n Not available Not available Not available 08/07/2022 39225 8003 SNOMED Not Available [facility] 3 22:06:02 Medications Name Sig Start Date Stop Date Status Note LastModified by Organization Details LastModified Time amoxicillin 500 mg capsule active Not Available Not Available Not Available metformin 500 mg tablet active Not Available Not Available Not Available venlafaxine ER 75 mg capsule,ext ended release 24 hr 07/21 completed Not Available Not Available Not Available clindamycin HCl 300 mg capsule 07/21 completed Not Available Not Available Not Available azithromyci n 250 mg tablet 12/30 completed Not Available Not Available Not Available ofloxacin 0.3 % eye drops active Not Available Not Available Not Available hydrocodone 5 mg-acetamin ophen 325 mg tablet 04/11 completed Not Available Not Available Not Available venlafaxine ER 150 mg capsule,ext ended release 24 hr active Not Available Not Available Not Available allopurinol 100 mg tablet active Not Available Not Available Not Available ciprofloxac in 500 mg tablet 08/06 completed Not Available Not Available Not Available tramadol 50 mg tablet active Not Available Not Available No t Available ketorolac 0.5 % eye drops 07/21 completed Not Available Not Available Not Available prednisolon e acetate 1 % eye drops,suspe nsion active Not Available Not Available Not Available Kenalog 10 mg/mL suspension for injection in office [address] [facility]: 0003- 0494- 20 Not Available Not Available Not Available levothyroxi ne 50 mcg tablet active Not Available Not Available Not Available cephalexin 500 mg capsule 09/11 completed Not Available Not Available Not Available ranitidine 150 mg tablet 04/11 completed Not Available Not Available Not Available pravastatin 20 mg tablet active Not Available Not Available Not Available hydroxychlo roquine 200 mg tablet Take 1 tablet every day by oral route. active Not Available Not Available No t Available epinephrine 0.3 mg/0.3 mL injection, auto-inject or active Not Available Not Available Not Available albuterol sulfate HFA 90 mcg/actuati on aerosol inhaler 12/30 completed Not Available Not Available Not Available colchicine 0.6 mg tablet 09/11 completed Not Available Not Available Not Available ketoconazol e 2 % topical cream 12/30 completed Not Available Not Available Not Available losartan 100 mg tablet 04/11 completed Not Available Not Available Not Available fluticasone propionate 50 mcg/actuati on nasal spray,suspe nsion active Not Available Not Available Not Available amoxicillin 875 mg-potassiu m clavulanate 125 mg tablet 08/06 completed Not Available Not Available Not Available amoxicillin 500 mg-potassiu m clavulanate 125 mg tablet 04/11 completed Not Available Not Available Not Available oxycodone 5 mg tablet 09/12 completed Not Available Not Available Not Available olmesartan 40 mg tablet active Not Available Not Available Not Available Tylenol Arthritis 650 mg tablet,exte nded release Take 2 tablets every 8 hours by oral route. 2020 active Not Available Not Available Not Avai lable Flovent HFA 110 mcg/actuati on aerosol inhaler 12/30 completed Not Available Not Available Not Available Voltaren 08/27 completed Not Available Not Available Not Available desoximetas one 04/11 completed Not Available Not Available Not Available Aspir-81 08/27 completed Not Available Not Available Not Available Glucosamine 08/06 completed Not Available Not Available Not Available metformin 08/08 completed Not Available Not Available Not Available Zyrtec 2019 active Not Available Not Available Not Avai lable lidocaine (PF) 10 mg/mL (1 %) injection solution In office injection administe red by the provider 04/[address] [facility]: [phone]- [phone] Not Available Not Available Not Available nebivolol 20 mg tablet active Not Available Not Available Not Available Osteo Bi-Flex 08/27 completed Not Available Not Available Not Available ropivacaine (PF) 5 mg/mL (0.5 %) injection solution in office [address] [facility] [phone] -[phone]- [phone] Not Available Not Available Not Available Myrbetriq 50 mg tablet,exte nded release active Not Available Not Available Not Available Eliquis 2.5 mg tablet 09/12 completed Not Available Not Available Not Available Shingrix (PF) 50 mcg/0.5 mL intramuscul ar suspension, kit 04/11 completed Not Available Not Available Not Available vitamin D3 2,000 unit-folic acid 1 mg tablet Take by oral route. 2019 active Not Available Not Available Not Avai lable Paxlovid 300 mg (150 mg x 2)-100 mg tablets in a dose pack TAKE 3 TABLETS BY MOUTH TWICE A DAY FOR 5 DAYS - HOLD COLCHICIN E WHILE TAKING 07/21 completed Not Available Not Available Not Available Vitals Date Recorded Body height Provider Name an d Address Organization Details Last Updated DateTime 07/21/2023 162.56 cm Maribel Diane [facility] 07/21/2023 16:06:31 Date Recorded Body height Body mass index (BMI) Body weight Provider Name and Address Organization Details Last Updated DateTime 09/11/2022 162.56 cm 38.6 kg/m2 415947.28 g Maribel Diane [facility] 09/11/2022 14:43:59 Date Recorded Body height Provider Name an d Address Organization Details Last Updated DateTime 10/12/2021 154.94 cm Not Available [facility] 22:05:15 Date Recorded Body height Provider Name an d Address Organization Details Last Updated DateTime 12/20/2022 162.56 cm Traci Oshea [facility] 12/20/2022 13:59:55 Date Recorded Body height Provider Name an d Address Organization Details Last Updated DateTime 03/28/2023 162.56 cm Maribel Diane [facility] 03/28/2023 14:34:24 Social History None recorded. Functional Status Question Answer Note LastModified by Organizat ion Details LastModified Time What is your level of alcohol consumption? Occasional [id number] Information not available 08/07/2022 Mental Status None recorded. Family History Relationship Description Onset Age of this Age Resolved Age Notes LastModified by Organization Details LastModified Time Brother Heart disease [id number] Not available 08/07/2022 22:04:54 Mother Family history of stroke [id number] Not available 08/07/2022 22:04:54 Mother Hypertensive disorder [id number] [id number] Not available 08/07/2022 22:04:54 Mother Diabetes mellitus [id number] Not available 08/07/2022 22:04:54 Sister Kidney disease [id number] Not available 08/07/2022 22:04:54 Medical History Condition Response BLINDNESS N KIDNEY STONES N MRSA N CARPAL TUNNEL SYNDROME N LUNG DISEASE/DISORDER N HISTORY OF DRUG ABUSE N RADIATION / CHEMOTHERAPY N COPD N SPORTS INJURY N ANKLE PAIN N BLOOD DISEASES N SCHIZOPHRENIA N SHINGLES N SHOULDER PAIN N DEPRESSION (INCLUDING POST ) N BOWEL PROBLEMS N STROKE/TIA N ULCERS N KNEE PAIN N BENIGN PROSTATIC HYPERPLASIA N OBESITY N GERD/NAUSEA N ANEURYSM N URINARY/BLADDER/KIDNEY PROBLEMS Y CORONARY ARTERY DISEASE (CAD) N ADDICTION CONCERNS N USE OF BLOOD THINNERS N SKIN PROBLEMS N EMPHYSEMA N MUSCLE,JOINT OR BONE PROBLEMS N DVT N STOMACH ULCERS N BLOOD CLOTS N USE OF NSAIDS N CONCUSSION OR SPINAL TRAUMA N NEUROPATHY N AIDS/HIV N FRACTURES N HYPERTENSION Y ELBOW PAIN N TOURETTE'S N Metal allergy N ANXIETY DISORDER N BLOOD TRANSFUSION N ANEMIA/BLOOD DISORDER N BIPOLAR DISORDER N BRONCHITIS N OSTEOARTHRITIS N TUBERCULOSIS N FOOT PROBLEM N HEART VALVE DISORDERS N ALLERGIES/HAYFEVER N SOFT TISSUE INJURY N INFECTIOUS DISEASE N HEART ARRHYTHMIA N INSOMNIA N HIGH CHOLESTEROL / HYPERLIPIDEMIA N RHEUMATOID ARTHRITIS N EDEMA N CHRONIC PAIN SYNDROME N CAROTID BLOCKAGE N BACK / NECK PROBLEMS N HAVE YOU BEEN HOSPITALIZED OR SEEN IN [facility] IN THE PAST YEAR ? N BURSITIS N HERNIATED DISC N DIALYSIS N FIBROMYALGIA N OSTEOPOROSIS N ARTHRITIS Y NO SIGNIFICANT PAST MEDICAL HISTORY N PERIPHERAL NEUROPATHY N DIABETES, TYPE Y HEARTBURN / REFLUX N HEPATITIS / LIVER DISEASE N GOUT Y ALZHEIMER'S DISEASE N SLEEP DISORDER N HERPES N HEADACHES/MIGRAINES N SEIZURES/EPILEPSY N VASCULAR DISEASE N Blood Disorder N HIP PAIN N DIZZINESS N HEAD TRAUMA OR INJURY N HEART DISEASE/HEART PROBLEMS N MULTIPLE SCLEROSIS N CANCER: SPECIFY N CARDIAC ARRHYTHMIA N ANESTHESIA COMPLICATIONS N ATRIAL FIBRILLATION N AUTOIMMUNE DISEASE N Gynecological HistoryNo gynecological history recorded. Obstetrics History GPAL:G 0 P 0 0 0 0 Past Encounters Encounter ID Performer Location Encounter Start Date Encounter Closed Date Diagnosis/Indication Diagnosis SNOMED-CT Code Diagnosis ICD10 Code Diagnosis IMO Codes Diagnosis Note [id number] Young Simmons MD [facility] [place] [address] [place] [address] 04/11/2021 00:00:00 04/19/2021 10:01:05 [id number] Young Simmons MD [facility] [place] [address] [place] [address] 08/06/2021 00:00:00 08/06/2021 15:30:09 [id number] [facility] [place] [address] [place] [address] 08/09/2021 00:00:00 08/13/2021 11:26:46 [id number] Young Simmons MD [facility] [place] [address] [place] [address] 08/27/2021 00:00:00 08/27/2021 17:12:57 [id number] Young Simmons MD [facility] [place] [address] [place] [address] 09/12/2021 00:00:00 09/12/2021 14:49:01 [id number] Young Simmons MD [facility] [place] [address] [place] [address] 10/12/2021 00:00:00 10/12/2021 13:31:14 [id number] Young Simmons MD [facility] [place] [address] [place] [address] 09/11/2022 14:08:21 09/11/2022 17:04:46 Pain of bilateral knee joints 6327945796 67084 M25.561 M25.562 [id number] Young Simmons MD [facility] [place] [address] [place] [address] 12/20/2022 13:47:18 12/20/2022 16:16:30 Pain of left knee joint 5827093116 48079 M25.405 [id number] Young Simmons MD [facility] [place] [address] [place] [address] 03/28/2023 14:24:56 03/28/2023 15:05:15 Bilateral osteoarthritis of knees 6735672127 01434 M17.0 [id number] Young Simmons MD [facility] [place] [address] [place] [address] 07/21/2023 15:46:43 07/21/2023 17:24:52 Osteoarthritis of left knee joint 1542916036 72565 M17.12 Health Concerns Section Related Observation LastModified by Organization Detai ls LastModified Time None Recorded Concern Status LastModified by Organization Details LastModified Time None Recorded Advance Directives Directive None Recorded Payers Insurance Date Sequence Insurance Name Policy Number Policy Cueva Covered Member ID Cueva Member ID Guarantor Name 03/24/2023 1 [facility] (MEDICARE REPLACEMENT/ ADVANTAGE - PPO) [id number] John Kwon [id number] John Kwon 03/24/2023 1 [employer] (PPO) [id number] John Kwon [id number] John Kwon 07/28/2023 1 [employer] (MEDICARE REPLACEMENT/ ADVANTAGE - PPO) [id number] 1 John Kwon [id number] John Kwon OBGyn Episode No OBEpisode recorded.
--- OUTSIDE RECORDS SUMMARY | 2025-04-11 21:33 | XMS_ITS | Encounter Summary ---
Author Organization [facility] Address [address] [place] [address] Care Team Providers Care Sweeper Cleaner Industrial Name Role Phone Tianna Peres MD Primary Care Provider [phone] New Referring, Provider Primary Care Provider Un available Tianna Peres MD Unavailable [phone] Tianna Peres MD Primary Care Provider [phone] Encounter Details Date Type Department Care Team (Late st Contact Info) Description 11/14/2018 Abstract SFL CONVERSION [address] [place] [address] , Generic Conversion, Social History Tobacco Use [...] on filedocumented in this encounter Care Teams Sweeper Cleaner Industrial Relationship Specialty Start Date End Date Tianna Peres MD [address] [place] [address] PCP - General INTERNAL MEDICINE 11/24/18 11/25/18 New Referring, Provider [address] [place] [address] PCP - General UNKNOWN PHYSICIAN SPECIALTY 11/26/18 11/01/20 Tianna Peres MD [address] [place] [address] PCP - General INTERNAL MEDICINE 11/02/20 Tianna Peres MD [address] [place] [id number] INTERNAL MEDICINE 11/26/18 11/01/20 documented as of this encounter
--- OUTSIDE RECORDS SUMMARY | 2025-04-11 21:33 | XMS_ITS | Encounter Summary ---
Author Organization [facility] Address [address] [place] [address] Care Team Providers Care Icing Maker Name Role Phone Tianna Peres MD Primary Care Provider [phone] New Referring, Provider Primary Care Provider Un available Tianna Peres MD Unavailable [phone] Tianna Peres MD Primary Care Provider [phone] Encounter Details Date Type Department Care Team (Late st Contact Info) Description 08/23/2017 Abstract SJS CONVERSION [address] [place] [address] , Generic Conversion, Social History Tobacco Use [...] on filedocumented in this encounter Care Teams Icing Maker Relationship Specialty Start Date End Date Tianna Peres MD [address] [place] [address] PCP - General INTERNAL MEDICINE 11/24/18 11/25/18 New Referring, Provider [address] [place] [address] PCP - General UNKNOWN PHYSICIAN SPECIALTY 11/26/18 11/01/20 Tianna Peres MD [address] [place] [address] PCP - General INTERNAL MEDICINE 11/02/20 Tianna Peres MD [address] [place] [address] INTERNAL MEDICINE 11/26/18 11/01/20 documented as of this encounter
--- OUTSIDE RECORDS SUMMARY | 2025-04-11 21:33 | XMS_ITS | Clinical Summary ---
Author Organization [facility] Address [address] [place] [address] Care Team Providers Care Adjunct Instructor Name Role Phone Tianna Peres MD Primary Care Provider [phone] Allergies Active Allergy Reactions Criticality Noted Date Comments Amlodipine Swelling 11/17/2015 Sulfa Antibiotics Rash Low 12/25/2018 Tetracycline Hives Medium 12/25/2018 Medications metFORMIN 500 MG tablet Take 500 mg by mouth daily with breakfast. Active allopurinol 100 MG tablet Take 100 mg by mouth 2 (two) times daily. Active colchicine 0.6 MG tablet Take 0.6 mg by mouth daily. Active B aeeplnq-I-zyxpq acid 0.8 mg Tab tablet Take 1 [...] day. 08/29/2020 Active Boswellia-Gluco samine-Vit D (OSTEO SG-[id number]/ 5-LOXIN) Tab Take 2 tablets by mouth [...] age to complete this topic Insurance MED [facility] MEDICARE Care Teams Adjunct Instructor Relationship Specialty Start Date End Date Tianna Peres MD [address] [place] [address] PCP - General INTERNAL MEDICINE 11/02/20
[2025-04-11 21:42] LABS: Hematocrit 29.0 % (35.0-42.0); Hemoglobin 9.2 g/dL (11.7-13.8); Immature Granulocyte Percent A 0.5 % (0.0-0.0); Lymphocytes Absolute Auto 1.01 K/mm3 (1.10-4.50); Mean Corpuscular HGB Conc 31.7 g/dL (32-36); Mean Corpuscular Hemoglobin 30.8 pg (27.0-31.0); Mean Corpuscular Volume 97.0 fL (78.0-102.0); Nucleated Red Blood Cells Absolute Auto 0.00 K/mm3 (0.00-0.00); Nucleated Red Blood Cells Perc 0.0 % (0-0.0); Platelet Count Result 230 K/mm3 (150-420); Red Blood Count 2.99 M/mm3 (4.20-5.40); White Blood Count 13.5 K/mm3 (4.8-10.8)
[2025-04-11 21:53] LABS: Alanine Aminotransferase 19 U/L (6-35); Albumin Level 4.0 g/dL (3.5-5.1); Alkaline Phosphatase 117 U/L (38-126); Anion Gap 9 mmol/L (4-12); Aspartate Amino Transferase 33 U/L (14-36); Bilirubin,Total 1.3 mg/dL (0.2-1.3); Blood Urea Nitrogen 33 mg/dL (7-17); Calcium 9.1 mg/dL (8.4-10.2); Carbon Dioxide 22 mmol/L (22-30); Chloride 112 mmol/L (98-107); Estimated CRCL calculation 35 ml/min; Estimated Glomerular Filt Rate 40; Glucose 155 mg/dL (65-110); Osmolality Calculated 306 mOsm/kg (285-295); Potassium 4.3 mmol/L (3.4-5.0); Sodium 143 mmol/L (137-145); Total Protein 6.9 g/dL (6.3-8.2)
[2025-04-11 21:56] LABS: INR 1.0; Partial Thromboplastin Time 27.7 Sec (23.9-30.70); Prothrombin Time 11.4 Seconds (9.50-12.1)
[2025-04-11] MEDS: HYDROmorphone HCL INJ (*CRX) 2 MG/ML VIAL 0.5 MG IV PUSH (22:12)
[2025-04-11 22:20] VITALS: BP 119/53; PULSE 70; RESP 16; TEMP 36.1; O2SAT 100
== END 2025-04-11 23:06 | disposition short-term general hospital (02) ==
PROVIDERS: Emergency Provider Emergency Medicine; PCP Internal Medicine
DX: S72.92XA Unspecified fracture of left femur, initial encounter for closed fracture (principal); E03.9 Hypothyroidism, unspecified; E11.9 Type 2 diabetes mellitus without complications; E78.5 Hyperlipidemia, unspecified; I10 Essential (primary) hypertension; Z79.82 Long term (current) use of aspirin; Z87.891 Personal history of nicotine dependence; W18.30XA Fall on same level, unspecified, initial encounter
CPT/HCPCS: 36415; 71045; 73502; 73562; 80053; 85025; 85610; 85730; 93005; 96374; 99285; J1171

== ENCOUNTER 2025-05-24 13:53 | Outpatient (CLI) | payer MEDICARE, SELFPAY ==
[2025-05-24 14:16] LABS: Hematocrit 27.0 % (35.0-42.0); Hemoglobin 8.3 g/dL (11.7-13.8); Immature Reticulocyte Fraction 16.8 % (2.0-16.52); Mean Corpuscular HGB Conc 30.7 g/dL (32-36); Mean Corpuscular Hemoglobin 29.4 pg (27.0-31.0); Mean Corpuscular Volume 95.7 fL (78.0-102.0); Platelet Count Result 266 K/mm3 (150-420); Red Blood Count 2.82 M/mm3 (4.20-5.40); Reticulocyte Hemoglobin Conten 29.9 pg (28.0-35.0); Reticulocytes Absolute 0.05 M/mm3 (0.02-0.10); White Blood Count 11.3 K/mm3 (4.8-10.8)
[2025-05-24 14:24] LABS: Alanine Aminotransferase 15 U/L (6-35); Albumin Level 4.1 g/dL (3.5-5.1); Alkaline Phosphatase 142 U/L (38-126); Anion Gap 11 mmol/L (4-12); Aspartate Amino Transferase 28 U/L (14-36); Bilirubin,Total 0.4 mg/dL (0.2-1.3); Blood Urea Nitrogen 29 mg/dL (7-17); Calcium 9.4 mg/dL (8.4-10.2); Carbon Dioxide 22 mmol/L (22-30); Chloride 108 mmol/L (98-107); Estimated Glomerular Filt Rate 36; Glucose 105 mg/dL (65-110); Iron 26 ug/dL (37-170); Osmolality Calculated 297 mOsm/kg (285-295); Potassium 4.5 mmol/L (3.4-5.0); Sodium 141 mmol/L (137-145); Total Protein 7.5 g/dL (6.3-8.2)
[2025-05-24 14:59] LABS: Ferritin 372.00 ng/mL (11.1-264)
[2025-05-24 15:10] LABS: Potassium 4.5 mmol/L (3.4-5.0); Sodium 141 mmol/L (137-145)
[2025-05-24 15:11] LABS: Albumin Level 4.1 g/dL (3.5-5.1); Anion Gap 11 mmol/L (4-12); Blood Urea Nitrogen 29 mg/dL (7-17); Calcium 9.4 mg/dL (8.4-10.2); Carbon Dioxide 22 mmol/L (22-30); Chloride 108 mmol/L (98-107); Estimated Glomerular Filt Rate 36; Glucose 105 mg/dL (65-110); Osmolality Calculated 297 mOsm/kg (285-295)
[2025-05-24 15:31] LABS: Vitamin B12 901.0 pg/mL (239-931)
--- OUTSIDE RECORDS SUMMARY | 2025-05-24 16:11 | XMS_ITS | Encounter Summary ---
Author Organization [facility] Address [address] [place] [address] Care Team Providers Care Community Health Consultant Name Role Phone Tianna Peres MD Primary Care Provider [phone] New Referring, Provider Primary Care Provider Un available Tianna Peres MD Unavailable [phone] Tianna Peres MD Primary Care Provider [phone] Encounter Details Date Type Department Care Team (Late st Contact Info) Description 08/23/2017 Abstract SJS CONVERSION [address] [place] [address] , Generic Conversion, Social History Tobacco Use [...] on filedocumented in this encounter Care Teams Community Health Consultant Relationship Specialty Start Date End Date Tianna Peres MD [address] [place] [address] PCP - General INTERNAL MEDICINE 11/24/18 11/25/18 New Referring, Provider [address] [place] [address] PCP - General UNKNOWN PHYSICIAN SPECIALTY 11/26/18 11/01/20 Tianna Peres MD [address] [place] [address] PCP - General INTERNAL MEDICINE 11/02/20 Tianna Peres MD [address] [place] [address] INTERNAL MEDICINE 11/26/18 11/01/20 documented as of this encounter
--- OUTSIDE RECORDS SUMMARY | 2025-05-24 16:11 | XMS_ITS | Clinical Summary ---
Author Organization [facility] Address [address] [place] [address] Care Team Providers Care Mine Safety Manager Name Role Phone Tianna Peres MD Primary Care Provider [phone] Allergies Active Allergy Reactions Criticality Noted Date [...] & Plan (02/01/2021 1:01 PM CDT): Ms. Yancye is a 75 year old woman with [...] 11/19/2010 Surgical History Surgery Date Site/Laterality Comments [place] CHOLECYSTECTOMY Cholecystectomy - (Added by TW Conv) [...] Brother Marko Bustamante Memory loss Maternal Grandmother Allegheny Toigo Obesity Maternal Grandmother Brooklynn Toigo Stroke Maternal Grandmother [place] Toigo Diabetes Mother Mariann Toigo Vezzoli Diabetes [...] on file Legal Sex Female 9:57 PM MEDICAL CLAIMS ASSISTANT Gender Identity Female 01/30/2021 12:12 PM CDT Sexual Orientation Straight 09/06/2021 12 :28 PM CDT Last Filed Vital Signs Vital Sign Reading Time Taken Comments Blood Pressure 132/74 09/12/2021 11:25 AM CDT Pulse 63 09/12/2021 11:25 AM CDT Temperature 36 C (96.8 F) 02/13/2021 2:51 PM CDT Respiratory Rate 15 04/23/2021 10:26 AM MEDICAL CLAIMS ASSISTANT Oxygen Saturation 97% 09/12/2021 11:25 AM CDT Inhaled Oxygen Concentration - - Weight 93 kg (205 lb) 09/12/2021 11:25 AM CDT Height 160 cm (5' 3) 09/12/2021 11:25 AM CDT Body Mass Index 36.31 09/12/2021 11:25 AM CDT Plan of Treatment Not on file Insurance [employer] MEDICARE [employer] MEDICARE ADVANTAGE [facility] MEDICARE Advance Directives For more information, please contact: [phone] Documents on File Type Date Recorded Patient Mechanism Assembler Expl anation ADVANCE DIRECTIVE 08/26/2017 12:00 AM Care Teams Mine Safety Manager Relationship Specialty Start Date End Date Tianna Peres MD [address] [place] [address] PCP - General 10/01/16
--- OUTSIDE RECORDS SUMMARY | 2025-05-24 16:11 | XMS_ITS | Patient Health Record ---
Author Organization [facility] Address [address] [place], [place] [id number] Care Team Providers Care Motor Vehicle Assembly Supervisor Name Role Phone JORDYN Murray Unavailable [phone] Tianna Peres Unavailable Unavailable Reason For Referral [...] Insured Coverage Start Date Coverage End Date [facility] [address] [address] [place] [id number] DINESH PEREZ Self - patient is the insured
--- OUTSIDE RECORDS SUMMARY | 2025-05-24 16:11 | XMS_ITS | Encounter Summary ---
Author Organization [facility] Address [address] [place] [address] Care Team Providers Care Furniture Maker Name Role Phone Tianna Peres MD Primary Care Provider New Referring, Provider Primary Care Provider Un available Tianna Peres MD Unavailable [phone] Tianna Peres MD Primary Care Provider [phone] Encounter Details Date Type Department Care Team (Late st Contact Info) Description 11/14/2018 Abstract SFL CONVERSION [address] [place] [address] , Generic Conversion, Social History Tobacco Use [...] on filedocumented in this encounter Care Teams Furniture Maker Relationship Specialty Start Date End Date Tianna Peres MD [address] [place] [address] PCP - General INTERNAL MEDICINE 11/24/18 11/25/18 New Referring, Provider [address] [place] [address] PCP - General UNKNOWN PHYSICIAN SPECIALTY 11/26/18 11/01/20 Tianna Peres MD [address] [place] [address] PCP - General INTERNAL MEDICINE 11/02/20 Tianna Peres MD [address] [place] [address] INTERNAL MEDICINE 11/26/18 11/01/20 documented as of this encounter
--- OUTSIDE RECORDS SUMMARY | 2025-05-24 16:11 | XMS_ITS | Clinical Summary ---
Author Organization [facility] Address [address] [place] [address] Care Team Providers Care Wigs Salesperson Name Role Phone Tianna Peres MD Primary Care Provider [phone] Allergies Active Allergy Reactions Criticality Noted Date Comments Amlodipine Swelling 11/17/2015 Sulfa Antibiotics Rash Low 12/25/2018 Tetracycline Hives Medium 12/25/2018 Medications metFORMIN 500 MG tablet Take 500 mg by mouth daily with breakfast. Active allopurinol 100 MG tablet Take 100 mg by mouth 2 (two) times daily. Active colchicine 0.6 MG tablet Take 0.6 mg by mouth daily. Active B hkwfyan-O-yskna acid 0.8 mg Tab tablet Take 1 [...] day. 08/29/2020 Active Boswellia-Gluco samine-Vit D (OSTEO [id number]/ 5-LOXIN) Tab Take 2 tablets by mouth [...] age to complete this topic Insurance MED [facility] MEDICARE Care Teams Wigs Salesperson Relationship Specialty Start Date End Date Tianna Peres MD [address] [place] [address] PCP - General INTERNAL MEDICINE 11/02/20
[2025-05-25 09:15] LABS: Parathyroid Intact 16.4 pg/mL (14.5-75.2)
== END 2025-05-24 13:54 | disposition home or self-care (01) ==
LOC: CHSLAB 13:54
PROVIDERS: Internal Medicine Nephrology; PCP Internal Medicine; Visit Provider Internal Medicine
DX: E11.22 Type 2 diabetes mellitus with diabetic chronic kidney disease (principal); I12.9 Hypertensive chronic kidney disease with stage 1 through stage 4 chronic kidney disease, or unspecified chronic kidney disease; N18.31 Chronic kidney disease, stage 3a; N25.81 Secondary hyperparathyroidism of renal origin; D64.9 Anemia, unspecified; E55.9 Vitamin D deficiency, unspecified
CPT/HCPCS: 36415; 80053; 80069; 82272; 82306; 82607; 82728; 82746; 83540; 83970; 84100; 85027; 85046